=== PATIENT | female | born 1955 | race Hispanic/Latino ===

== ENCOUNTER 2017-11-03 20:45 | Emergency (ER) | payer BC, OTHER ==
[~2017-11-03] VITALS: Ht 172.7 cm; Wt 117.9 kg
[~2017-11-03 20:45] MED LIST: ASPIRIN81 MG PO; LOSARTAN POTASS25 MG PO; NOVOLIN 70100 UNITS/ SC; TOPROL XL25 MG PO; [UNRECOGNIZED DRUG - OTHER]
--- NOTE | 2017-11-03 22:31 | Diagnostic Imaging Report ---
EXAMINATION: CHEST 2 VIEWS INDICATION: Chest pain, coughing COMPARISON: None FINDINGS: TUBES and LINES: None. LUNGS: Lungs are well inflated. Lungs are clear. There is mild prominence of the central pulmonary vasculature, consistent with pulmonary venous congestion. PLEURA: No pleural effusion or pneumothorax. HEART AND MEDIASTINUM: Cardiac size is moderately enlarged. BONES AND SOFT TISSUES: No acute osseous lesion. Soft tissues are unremarkable. UPPER ABDOMEN: No free air under the diaphragm. IMPRESSION: 1. No acute thoracic abnormality. 2. Moderate cardiomegaly without decompensation. Signed by: Dr. Kvng Hills M.D. on 11/03/2017 10:27 PM
== END 2017-11-03 22:10 | disposition home or self-care (01) ==
LOC: ER 20:45
DX: R07.89 Other chest pain (principal); R05 Cough; J20.9 Acute bronchitis, unspecified; I10 Essential (primary) hypertension; E11.40 Type 2 diabetes mellitus with diabetic neuropathy, unspecified
CPT/HCPCS: 71046; 93005; 99283

== ENCOUNTER 2020-02-02 11:48 | Emergency (ER) | payer MEDICARE, OTHER ==
[~2020-02-02] VITALS: Ht 172.7 cm; Wt 117.9 kg
--- OUTSIDE RECORDS SUMMARY | 2020-02-02 11:50 | XMS REPORT | Clinical Summary ---
Author Author [facility] ict Organization [facility] ict Address Unknown Phone Unavailable Care Team Providers Care Sourcing Coordinator Name Role Phone PCP Unavailable Allergies Comments Active Allergy Reactions Severity Noted Date Swelling, wt gain Pioglitazone 07/02/2011 Sulfamethoxazole-Trimetho 02/27/2016 prim Ciprofloxacin Rash 11/20/2015 Lisinopril Cough 04/05/2013 Patient stated she had experienced getting jittery after taking the meds Hydrocodone-Acetaminophen 03/18/2013 Medications End Date Status Medication Sig Dispensed Refills Start Date Active aspirin (ASPIRIN) 81 mg Chew and 90 tablet 4 chewable swallow 1 5 tabletIndications: CAD tablet by (coronary artery mouth daily. disease), S/P coronary artery stent placement Active blood glucose Use as 1 Kit 0 meterIndications: directed.. 5 Diabetes Active insulin asp prt-insulin Inject 25 270 mL 3 aspart (NOVOLOG MIX 70/30 units under 5 FLEXPEN) the skin in FlexPenIndications: DM the morning (diabetes mellitus), type and 20 units 2, uncontrolled at night. w/neurologic complication Active INSULIN SYRINGE 1mL Use to inject 100 Syringe 5 30GX5/16" medication 2 5 syringe-needleIndications times daily. : DM (diabetes mellitus), Use a new type 2, uncontrolled syringe each w/neurologic complication time. Active lancets 28 Use to check 100 Each 1 gaugeIndications: DM blood sugar 5 (diabetes mellitus), type as directed 2, uncontrolled w/neurologic complication Active pen needle, diabetic Use as 200 Each 4 08/05 (NOVOFINE) 30 gauge x directed. 5 1/3" needlesIndications: Diabetes mellitus Active metFORMIN (GLUCOPHAGE) Take 2 360 tablet 0 500 mg tabletIndications: tablets by 5 DM (diabetes mellitus), mouth 2 times type 2, uncontrolled daily (with w/neurologic complication meals). Active nitroGLYCERIN (NITROSTAT) DISSOLVE 1 100 tablet 0 0.4 mg sublingual TABLET UNDEr 5 tabletIndications: CAD THE TONGUE (coronary artery EVERY 5 disease), S/P coronary MINUTES artery stent placement NEEDED,UP TO 3 TIMES. IF CHEST PAIN PERSISTS CALL 911 Active cetirizine (ZYRTEC) 10 mg Take 1 tablet 30 tablet 0 tabletIndications: by mouth 6 Allergic rhinitis, daily. unspecified allergic rhinitis type Active fluticasone (FLONASE) 50 Use 1 [place] 16 g 0 0 mcg/actuation nasal in each 6 sprayIndications: Acute nostril sinusitis, unspecified daily. Active clonazePAM (KLONOPIN) 0.5 Take 1 tablet 20 tablet 0 mg tabletIndications: by mouth 6 Anxiety nightly at bedtime as needed for Anxiety. Active benzonatate (TESSALON Take 1 30 capsule 0 10/29 PERLES) 100 mg capsule by 6 capsuleIndications: Viral mouth 3 times upper respiratory tract daily as infection needed for Cough. Active Lactobac. rhamnosus Take by 1 Box 0 GG-inulin (CULTURELLE mouth. 6 PROBIOTICS) 10 billion cell -200 mg ChewIndications: Antibiotic-associated diarrhea Active albuterol (PROVENTIL, Take 5 mL by 120 mL 0 VENTOLIN) 2 mg/5 mL mouth 4 times 6 syrupIndications: Acute daily as URI needed for Other (wheezing). Active collagenase (SANTYL) 250 Apply to 30 g 5 0 unit/gram affected area 6 ointmentIndications: daily Apply Diabetic ulcer of left to wound foot associated with type daily. 2 diabetes mellitus Active glimepiride (AMARYL) 4 mg Take 1 tablet 90 tablet 3 tabletIndications: Type 2 by mouth 6 diabetes mellitus with every morning other specified (before complication breakfast). Active metoprolol succinate Take 1 tablet 90 tablet 6 (TOPROL XL) 25 mg by mouth 6 extended release daily. tabletIndications: Coronary artery disease involving [place] coronary artery of [place] heart without angina pectoris, S/P coronary artery stent placement Additional information Patient not taking. Reported on 10/03/2019 10:25 AM Active atorvastatin (LIPITOR) 20 Take 1 tablet 30 tablet 6 mg tabletIndications: by mouth at 6 Chest pain, unspecified bedtime type nightly. Active omeprazole (PRILOSEC) 20 Take 1 90 capsule 2 0 mg delayed release capsule by 7 capsuleIndications: mouth every Gastroesophageal reflux morning disease without (before esophagitis breakfast). Active travoprost (TRAVATAN Z) Instill 1 0 0.004 % ophthalmic Drop in right solution eye at bedtime nightly. Active mupirocin (BACTROBAN) 2 % Apply a small 30 g 5 ointmentIndications: amount to 7 Diabetic ulcer of left wound daily midfoot associated with and cover type 2 diabetes mellitus, with gauze. limited to breakdown of skin Active furosemide (LASIX) 40 mg Take 1 tablet 270 tablet 3 tabletIndications: by mouth 3 7 Ischemic cardiomyopathy times daily. Active potassium chloride Take 1 tablet 4 tablet 0 08/10 (KLOR-CON M20) 20 mEq by mouth As 7 extended release directed Take tabletIndications: by mouth with Productive cough metolozone.. Active GABAPENTIN OR Take by 0 mouth. Active amoxicillin-clavulanate Take 1 tablet 0 (AUGMENTIN) 875-125 mg by mouth 2 per tablet times daily. Active spironolactone Take 1 tablet 90 tablet 3 (ALDACTONE) 25 mg by mouth 8 tabletIndications: daily. Dilated cardiomyopathy Active clopidogrel (PLAVIX) 75 Take 8 98 tablet 3 mg tabletIndications: tablets the 8 Ischemia first day (loading dose) then 1 tablet daily. Active prasugrel (EFFIENT) 10 mg Take 1 tablet 90 tablet 3 TabIndications: Coronary by mouth 8 artery disease due to daily. lipid rich plaque Active minocycline (MINOCIN, Take 1 14 capsule 0 / DYNACIN) 100 mg capsule by 8 capsuleIndications: ICD mouth 2 times (implantable daily. cardioverter-defibrillato r) in place Active allopurinol (ZYLOPRIM) Take 300 mg 0 300 mg tablet by mouth daily. Active ferrous sulfate 325 mg Take 325 mg 0 (65 mg iron) tablet by mouth daily (with breakfast). Active carvedilol (COREG) 6.25 Take 1 tablet 180 tablet 4 mg tabletIndications: by mouth 2 9 Ischemia times daily (with meals). Additional information Patient not taking. 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 04/03/2016 Chronic systolic heart failure 02/23/2016 Acute on chronic systolic CHF (congestive heart failu re) 10/29/2015 Hyphema 12/24/2014 Type II or unspecified type diabetes mellitus with op hthalmic 10/24/2014 manifestations, not stated as uncontrol led(250.50) Pseudophakia, both eyes 10/24/2014 Proliferative diabetic retinopathy(362.02) 4 Fall 06/06/2014 Medial malleolar fracture 05/21/2014 Fracture of tibia, distal, right, closed 2014 Fall from standing 05/11/2014 Anxiety with somatization 04/17/2014 Left bundle branch block 03/22/2014 DM (diabetes mellitus), type 2, uncontrolled w/neurol ogic complication 03/22/2014 GERD (gastroesophageal reflux disease) 03/22/2014 Charcot foot due to diabetes mellitus 01/05/2014 Fatty liver 11/13/2013 Abnormal finding on imaging 10/25/2013 Overview: : Intermittent tangential filling defect of the esophagus at the thoracic junction. This likely represe nts an aberrant vessel. Retinopathy due to secondary diabetes- vision abn Diabetic ulcer of left foot 12/25/2012 Insomnia Neuropathy Hepatitis C Obesity Microalbuminuria- as on 09/2013-cough wi th scott-inhibitor ; start cozaar HTN (hypertension) HLD (hyperlipidemia) Acute exacerbation of CHF (congestive h eart failure) Bronchiolitis Gastroesophageal reflux disease without esophagitis ICD (implantable cardioverter-defibrill ator) in place Encounters Care Team Description Date Type Specialty Rosa M Darby MD ICD (implantable cardioverter-defibrilla tor) in place (Primary Dx) 12/01/2019 Nurse Only Cardiology Al Palumbo MD Greak, Jessica Orr 10/03/2019 Hospital Cardiology Encounter Al Palumbo MD LV dysfunction (Primary Dx); ICD (implantable cardioverter-defibrillator) in place; S/P coronary artery stent placement; Essential hypertension 10/03/2019 Office Visit Cardiology Rosa M Darby MD ICD (implantable cardioverter-defibrilla tor) in place (Primary Dx) 09/01/2019 Nurse Only Cardiology Rosa M Darby MD ICD (implantable cardioverter-defibrilla tor), biventricular, in situ (Primary Dx) 06/02/2019 Office Visit Cardiology Al Palumbo MD ICD (implantable cardioverter-defibrilla tor), biventricular, in situ (Primary Dx) 03/03/2019 Office Visit Cardiology after 02/01/2019 Immunizations Name Administration Dates Next Due Lidocaine 1% 5ml Inj 11/14/2015 Ceftriazone 250mg 11/14/2015 Injection Influenza Vac (Fluarix) 06/30/2014 Influenza Vaccine 09/12/2016 (Deferred: [place] valencia Refused), 06/29/2006 Insulin R U-100 1ml Inj 11/29/2012 Nitrostat 0.4mg Tab 02/19/2016 PNEUMOCOCCAL 23-VALPS 04/27/2018 (Deferred: [place] valencai already had this VACCINE 25 MCG/0.5 ML immunization - PER PATIENT VACCINE WAS GIVEN LAST INJECTION YEAR 2016 AT [facility]) Pneumoccoccal 03/07/2012 Tdap Tetanus, diphtheria, 04/04/2013 acellular pertussis Vaccine Family History Medical History Relation Name Comments Cancer Brother BRAIN CANCER (DECEA SED) Diabetes Brother Heart Brother Other Father Diabetes Mother Heart Mother Psychiatry Mother ALZHEIMERS Diabetes Sister 3 SISTERS ALL WITH DIABETES Cancer Sister 2 SISTERS (COLON, U NKNOWN) Relation Name Status Comments Brother Father Mother Sister Sister Social History Date Tobacco Use Types Packs/Day Years Used Quit: 04/17/1990 Former Smoker Cigarettes 0.5 5 Smokeless Tobacco: Former User Tobacco Cessation: Counseling Given: Yes Drinks/Week oz/Week Comments Alcohol Use 0 Standard drinks or equivalent 0.0 No Food Insecurity Answer Date Recorded Within the past 12 months, you worried that your Never sangita e 03/05/2017 food would run out before you got money to buy more. Within the past 12 months, the food you bought Never true 03/05/2017 just didn't last and you didn't have mo debi to get more. Sex Assigned at Date Recorded Not on file Industry Job Start Date Occupation Not on file Not on file Not on file Travel End Travel History Travel Start No recent travel history available. Last Filed Vital Signs Reading Time Taken Comments Vital Sign 136/75 10/03/2019 10:27 AM [employer] Blood Pressure 95 10/03/2019 10:27 AM [employer] Pulse 36.5 C (97.7 F) 10/03/2019 10:27 AM [employer] Temperature 18 10/03/2019 10:27 AM [employer] Respiratory Rate 100% 10/03/2019 10:27 AM [employer] Oxygen Saturation - - Inhaled Oxygen Concentration 116.9 kg (257 lb 11.2 oz) 10/03/2019 10:27 AM [employer] Weight 172.7 cm (5' 8") 10/03/2019 10:27 AM [employer] Height 39.18 10/03/2019 10:27 AM [employer] Body Mass Index Plan of Treatment Health Maintenance Due Date Last Done Comments Colorectal Cancer Scrn 01/01/2007 01/01/2006, 02/2006, 12/30/2005 Annual (FIT/FOBT) Age 50 to 75 DM Foot Exam (Yearly) 09/08/2014 09/08/2013 Breast Cancer Scrn 10/08/2015 10/08/2014, 012 (Yearly) DM Retinal Exam (Yearly) 01/31/2016 01/30/2015, 0 01/25/2015, 12/24/2014, Additional history exists DM Microalbumin Urine 03/15/2016 03/15/2015, 11/27, 12/24/2014, Scrn (Yearly) Additional history exists CORONARY ARTERY DISEASE 04/27/2019 04/27/2018, , 10/30/2015, AGE 18 AND UP Additional history exists DM HGBA1C (Yearly) 04/27/2019 04/27/2018, 018, 02/20/2016, Additional history exists IMM Pneumococcal Age 65 Completed 03/07/2012 and Up Implants Device Identifier Shelf Expiration Date Model / Serial / L ot Implanted Type Area Manufactur er 11/25/2014 / / [id number] Sil[employer]one [employer] & Implanted: Qty: 1 on 10/01/2014 at [facility] Description:ADATO JORGE A OL 5000 Procedures Comments Procedure Name Priority Date/Time Associated Diag nosis ECHG NON-INVASIVE PROC Routine 10/03/2019 LV dysf unction ECHOCARDIOGRAM 2-D W/O 11:43 AM [employer] CONTRAST (PROSOLVE) after 02/01/2019 Results * TRANSTHORACIC ECHO (TTE) (10/03/2019 11:43 AM [employer]) TRANSTHORACIC Transthoracic SMS ECHO (TTE) Echo Report DIANDRA WANG Age: 64 Gender: F : 1955 Exam Date: 10/03/2019 11:43 Exam Location: [facility] Echo Ordering Phys: AL PALUMBO (hchd/Alma DeliakiN) Referring Phys: AL PALUMBO (hchd/Alma DeliakiN) Reading Phys: June Kaur MD Fellow Phys: Fellow Phys: Carpenter Supervisor Wooden Ship: Airam Lea Reason For Exam: Indications: chf, CHF ICD-9 Codes: I50.9 Exam Type: TRANSTHORACIC ECHO (TTE) Procedure CPT: 06312 Addtional CPT: Ht (in): 68 BSA: 2.42 HR: 95 Rhythm: Sinus rhythm Wt (lb): 257 BP: 136 / 75 Technical Quality: Excellent History: MEASUREMENTS Normal ranges based on 95% confidence intervals for adults, some normal patients may fall outside of this range especially when indexing for BSA 2D ECHO LV Diastolic Diameter PLAX 7 cm 4.2-5.8 (M) / 3.8-5.2 (F) IVS Diastolic Thickness 0.93 cm 0.6-1.0 (M) / 0.6-0.9 (F) LVPW Diastolic Thickness 1.3 cm 0.6-1.0 (M) / 0.6-0.9 (F) LV Relative Wall Thickness 0.32 <= 0.42 LVOT Diameter 2.1 cm Aortic Root Diameter 3 cm LV Diastolic Volume MOD BP 274 cm 62-150 cm (M) / 46-106 cm (F) LV Systolic Volume MOD BP 196 cm 21-61 cm (M) / 14-42 cm (F) LV Ejection Fraction MOD BP 28.5 % 52-72 (M) / 54-74 (F) LV Stroke Volume MOD BP 78 cm LV Cardiac Output MOD BP 7410 cm/min LV Cardiac Index MOD BP 3066 cm/minm LA Volume 108 cm LA Volume Index 44.6 cm/m 16 - 34 cm/m LV Mass by linear method 364 g LV Mass by linear method Index 151 g/m DOPPLER LVOT Peak Velocity 109 cm/s LVOT Peak Gradient 4.8 mmHg LVOT Mean Velocity 77.6 cm/s LVOT Mean Gradient 3 mmHg LVOT Velocity Time Integral 21.2 cm LVOT Stroke Volume 75.4 cm FINDINGS Left Ventricle Ultrasound contrast was used for LV opacification. Severe left ventricular dilatation. severely increased LV mass. Left ventricular ejection fraction is 25-29%. Mid to apical segments are akientic, basal segments are low normal . E/a fusion, indeterminent diastology. no apical thrombus seen Right Ventricle The right ventricle is normal in size and systolic function. Device lead in the right ventricular cavity. Right Atrium The right atrium is normal in size. Catheter/pacemaker wire in the right atrial cavity. Left Atrium Moderate-severe left atrial dilatation. The left atrial volume index is 44 cc/ m2 BSA. IAS Mitral Valve Mild posterior leaflet calcification, leaflet tenting. trace to mild MR Aortic Valve Grossly normal aortic valve. cannot exclude trivial AR Tricuspid Valve Grossly normal tricuspid valve. Insufficient TR jet to estimate pulmonary artery systolic pressure. Pulmonic Valve Structurally normal pulmonic valve. Pericardium No pericardial effusion. Aorta Normal aortic root for body surface area. IVC The inferior vena cava is normal in size. CONCLUSIONS Ultrasound contrast was used for LV opacification. Severe left ventricular dilatation. severely increased LV mass. Left ventricular ejection fraction is 25-29%. Mid to apical segments are akientic, basal segments are low normal . E/a fusion, indeterminent diastology. no apical thrombus seen. The right ventricle is normal in size and systolic function. Device lead in the right ventricular cavity. Moderate-severe left atrial dilatation. The left atrial volume index is 44 cc/ m2 BSA. No significant valve abnormalities. compared to prior study in 2016 there is wall motion improvement of basal inferior/setpum. no TR jet to assess PAPs today. new device lead present June Kaur MD (Electronically Signed) Final Date: 03 October 2019 13:24 2D ECHO LV Diastolic Diameter PLAX 7 cm 4.2-5.8 (M) / 3.8-5.2 (F) IVS Diastolic Thickness 0.93 cm 0.6-1.0 (M) / 0.6-0.9 (F) LVPW Diastolic Thickness 1.3 cm 0.6-1.0 (M) / 0.6-0.9 (F) LV Relative Wall Thickness 0.32 <= 0.42 LVOT Diameter 2.1 cm Aortic Root Diameter 3 cm LV Diastolic Volume MOD BP 274 cm 62-150 cm (M) / 46-106 cm (F) LV Systolic Volume MOD BP 196 cm 21-61 cm (M) / 14-42 cm (F) LV Ejection Fraction MOD BP 28.5 % 52-72 (M) / 54-74 (F) LV Stroke Volume MOD BP 78 cm LV Cardiac Output MOD BP 7410 cm/min LV Cardiac Index MOD BP 3066 cm/minm LA Volume 108 cm LA Volume Index 44.6 cm/m 16 - 34 cm/m LV Mass by linear method 364 g LV Mass by linear method Index 151 g/m DOPPLER LVOT Peak Velocity 109 cm/s LVOT Peak Gradient 4.8 mmHg LVOT Mean Velocity 77.6 cm/s LVOT Mean Gradient 3 mmHg LVOT Velocity Time Integral 21.2 cm LVOT Stroke Volume 75.4 cm Specimen Performing Organization Address City/State/Zipcode Ph one Number SMS after 02/01/2019 Insurance Type Payer Benefit Subscriber ID Effective Phone Address Plan / Dates Group AETNA MEDICARE AETNA xxxxxxxxxxxx 2019-P [phone] [address] [id number] [place] [address] Advance Directives Date Inactivated Comments Code Status Date Activated 04/27/2018 5:53 PM Full Code 04/26/2018 12:55 PM 03/20/2017 7:10 PM Full Code 03/20/2017 11:34 AM 12/08/2016 3:32 PM Full Code 12/07/2016 11:30 AM 09/29/2016 1:11 PM Full Code 09/27/2016 11:10 AM 09/17/2016 4:44 PM Full Code 09/16/2016 3:16 PM
--- OUTSIDE RECORDS SUMMARY | 2020-02-02 11:51 | XMS REPORT ---
Author Author [facility] Organization [facility] Address Unknown Phone Unavailable Care Team Providers Care Facility Coordinator Name Role Phone SAUL TAPIA MD PP CATALINA BROWN Unavailable Unavailable KARLY WOMACK Unavailable Unavailable RAFAL, ADEDOYIN Unavailable Unavailable ZAC GUTIÉRREZ Unavailable Unavailable Rolando HARRELL Unavailable Unavailable Payers Payer Name Policy Type Policy Number Effective Date Expiration D ate [address] [id number] Problems This patient has no known problems. Allergies, Adverse Reactions, Alerts Allergy Name Allergy Type Status Severity Reaction(s) Onset Date Inacti ve Date Treating Clinician Comments Lisinopril Allergy to Substance Active Unknown 2017-11-03 00:00 :00 Ciprofloxacin Allergy to Substance Active Unknown 2017-11-03 00 :00:00 Pioglitazone Allergy to Substance Active Unknown 2017-11-03 00: 00:00 lisinopril DA Active MO 2016-08-17 00:00:00 pioglitazone DA Active MO 2016-08-17 00:00:00 hydrocodone bit DA Active U 2010-05-28 00:00:00 Medications Ordered Medication Name Filled Medication Name Start Date Stop Da te Current Medication? Ordering Clinician Indication Dosage Frequency Signature (SIG) Comments Components Aspirin 81 Mg Tab.chew Aspirin 81 Mg Tab.chew Yes 81 Daily Insulin Human Isophan/Regular (Novolin 70-30 100 Unit/ Ml Vial) 100 Units/Ml Ml Insulin Human Isophan/Regular (Novolin 70-30 100 Unit/Ml Vial) 100 Units/Ml Ml Yes 15 Losartan Potassium 25 Mg Tablet Losartan Potassium 25 Mg Tablet Yes 25 Metoprolol Succinate (Toprol Xl) 25 Mg Tab.er.24h Meto prolol Succinate (Toprol Xl) 25 Mg Tab.er.24h Yes 25 Daily Osymia Osymia Yes Procedures and Interventions Procedure Date / Time Performed Performing Clinici an X-ray of chest, two views 2017-11-03 00:00:00 FRANK HARRELL Encounters Start Date/Time End Date/Time Encounter Type Admission Type [facility] Care Department Encounter ID 2018-08-05 00:00:00 2018-08-05 00:00:00 Outpatient [facility] [id number] 2018-05-18 00:00:00 2018-05-18 00:00:00 Outpatient [facility] [id number] 2018-05-13 09:15:44 2018-05-13 09:15:44 Outpatient [facility] [id number] 2018-04-29 17:46:27 2018-04-29 17:46:27 Emergency [facility] [id number] 2018-04-29 08:31:28 2018-04-29 08:31:28 Outpatient [facility] [id number] 2018-04-29 02:14:10 2018-04-29 02:14:10 Outpatient [facility] [id number] 2018-04-29 00:00:00 2018-04-29 00:00:00 Outpatient [facility] [id number] 2018-04-28 22:46:00 2018-04-28 22:46:00 Emergency [facility] [id number] 2018-04-28 08:59:11 2018-04-28 08:59:11 Outpatient [facility] [id number] 2018-04-27 00:00:00 2018-04-27 00:00:00 Outpatient [facility] [id number] 2018-04-26 23:48:44 2018-04-26 23:48:44 Outpatient [facility] [id number] 2018-04-26 14:07:48 2018-04-26 14:07:48 Outpatient [facility] [id number] 2018-04-26 13:45:37 2018-04-26 13:45:37 Outpatient [facility] [id number] 2018-04-26 00:00:00 2018-04-26 00:00:00 Outpatient [facility] [id number] 2018-04-19 15:10:17 2018-04-19 15:10:17 Outpatient [facility] [id number] 2018-04-19 06:55:32 2018-04-19 06:55:32 Outpatient [facility] [id number] 2017-12-13 00:00:00 2017-12-13 00:00:00 Outpatient [facility] [id number] 2017-12-07 06:50:33 2017-12-07 06:50:33 Outpatient [facility] [id number] 2017-11-19 00:00:00 2017-11-19 00:00:00 Outpatient [facility] [id number] 2017-11-03 20:45:00 2017-11-03 22:10:00 Departed Emergency Room ER MANUEL HARRELL [facility] [id number] 2017-10-12 00:00:00 2017-10-12 00:00:00 Outpatient [facility] [id number] 2017-08-31 00:00:00 2017-08-31 00:00:00 Outpatient [facility] [id number] 2017-08-24 00:00:00 2017-08-24 00:00:00 Outpatient [facility] [id number] 2017-08-10 06:46:01 2017-08-10 06:46:01 Outpatient [facility] [id number] 2017-08-06 00:00:00 2017-08-06 00:00:00 Outpatient [facility] [id number] 2017-06-11 00:00:00 2017-06-11 00:00:00 Outpatient [facility] [id number] 2017-05-18 08:57:47 2017-05-18 08:57:47 Outpatient [facility] [id number] 2017-04-16 10:23:15 2017-04-16 10:23:15 Outpatient [facility] [id number] 2017-03-20 07:54:29 2017-03-20 07:54:29 Outpatient [facility] [id number] 2017-03-20 04:47:32 2017-03-20 04:47:32 Emergency [facility] [id number] 2017-03-05 10:17:10 2017-03-05 10:17:10 Outpatient [facility] [id number] 2017-03-05 09:27:54 2017-03-05 09:27:54 Outpatient [facility] [id number] 2016-09-27 11:06:43 2016-09-27 11:06:43 Emergency [facility] [id number] 2016-09-27 07:19:41 2016-09-27 07:19:41 Emergency [facility] [id number] 2016-09-27 07:02:40 2016-09-27 07:02:40 Outpatient [facility] [id number] Results Test Description Test Time Test Comments Text Results Atomic Results Result Comments RAD, CHEST, 2 VIEWS 2019-10-05 18:53:00 FINAL RE PORT CLINICAL HISTORY: Fall and pain 4 images of the chest are submitted. COMPARISON: 08/09/2019 The cardiac silhouette is stable in its prominent size. A left subclavian, multilead ICD is in place. There is no focal consolidation, pleural effusion, pneumothorax or evidence of overt pulmonary edema. There is no acute bony abnormality. IMPRESSION: No acute abnormality. Signed: He Carvalho MDReport Verified Date/Time: 10/05/2019 18:53:53 ONIN I 2019-08-09 10:57:00 TROPONIN I (BEAKER) (test code = 397) 0.01 ng/mL 0.00-0.03 Troponin I (TnI) levels must be interpreted in the context of the presenting sym ptoms and the clinical findings. Elevated TnI levels indicate myocardial damage, but are not specific for ischemic heart disease. Elevated TnI levels are seen in patients with other cardiac conditions (including myocarditis and congestive h eart failure), and slight TnI elevations occur in patients with other conditions , including sepsis, renal failure, acidosis, acute neurological disease, and per sistent tachyarrhythmia.URINALYSIS W/ [id number] 09:10:00* Test Item Value Reference Range Comments COLOR (BEAKER) (test code = 470) Light Yellow CLARITY (BEAKER) (test code = 469) Clear SPECIFIC GRAVITY UA (BEAKER) (test code = 468) 1.011 1 .001-1.035 PH UA (BEAKER) (test code = 467) 5.0 5.0-8.0 PROTEIN UA (BEAKER) (test code = 464) Negative Negative GLUCOSE UA (BEAKER) (test code = 365) 200 mg/dL Negative KETONES UA (BEAKER) (test code = 371) Negative Negative BILIRUBIN UA (BEAKER) (test code = 462) Negative Negative BLOOD UA (BEAKER) (test code = 461) Negative Negative NITRITE UA (BEAKER) (test code = 465) Negative Negative LEUKOCYTE ESTERASE UA (BEAKER) (test code = 466) Negative Negative UROBILINOGEN UA (BEAKER) (test code = 463) 0.2 mg/dL 0.2-1 .0 RBC UA (BEAKER) (test code = 519) 1 /HPF WBC UA (BEAKER) (test code = 520) 1 /HPF MUCUS (BEAKER) (test code = 1574) Rare SQUAMOUS EPITHELIAL (BEAKER) (test code = 516) 2 /HPF SOURCE(BEAKER) (test code = 2795) CT, [id number] 08:42:00Reason for exam:->Abdominal painWhat is the patient's sedation requirement?->No SedationFINAL REPORT INDICATION:Abdominal pain. COMPARISON: None. TECHNIQUE: CT of the Abdomen and Pelvis WITHOUT intravenous contrast. Enteric contrast was not used. The exam was performed according to our department dose-optimization protocol, which includes automated exposure control, adjustments of mA and kV according to patient size. Iterative reconstructions are also sometimes employed. FINDINGS:No bowel obstruction or infection is demonstrated. The appendix is not identified; there is no secondary evidence of appendicitis. No peritoneal free fluid or free air is demonstrated. Patient is status post cholecystectomy. No biliary ductal dilatation is demonstrated. Liver, pancreas, spleen are unremarkable. In the right adrenal gland there is a 1.5 cm low-density nodule representing a benign adenoma. No kidney stone or hydronephrosis is demonstrated. No gross renal mass. Bladder is mildly distended and no bladder wall abnormality demonstrated. Small nonspecific calcifications in both ovaries are noted. No uterine or adnexal mass demonstrated. No pelvic lymphadenopathy or free fluid. No retroperitoneal lymphadenopathy. Lumbar disc space and endplate degenerative changes noted. No suspicious osseous lesion or compression fracture demonstrated. Lower thorax unremarkable. IMPRESSION: No acute abdominal or pelvic abnormality. Right adrenal 1.5 cm benign adenoma, for which no imaging follow-up is recommended. Signed: Luis Newton MDReport Verified Date/Time: 08/09/2019 08:42:16 Re ading Location: [facility] Diagnostic Imaging Reading Room - [place] [id number] Electronica lly signed by: LUIS NEWTON M.D. on 08/09/2019 08:42 AM LIPASE 2019-08-09 08:12:00* Test Item Value Reference Range Comments LIPASE (BEAKER) (test code = 749) 51 U/L 8-78 BASIC METABOLIC [id number] 08:12:00* Test Item Value Reference Range Comments SODIUM (BEAKER) (test code = 381) 135 meq/L 136-145 POTASSIUM (BEAKER) (test code = 379) 3.8 meq/L 3.5-5.1 CHLORIDE (BEAKER) (test code = 382) 100 meq/L 98-107 CO2 (BEAKER) (test code = 355) 24 meq/L 22-29 BLOOD UREA NITROGEN (BEAKER) (test code = 354) 39 mg/dL 7 -21 CREATININE (BEAKER) (test code = 358) 1.38 mg/dL 0.57-1.25 GLUCOSE RANDOM (BEAKER) (test code = 652) 194 mg/dL 70-105 CALCIUM (BEAKER) (test code = 697) 9.5 mg/dL 8.4-10.2 EGFR (BEAKER) (test code = 1092) 38 mL/min/1.73 sq m ESTIMATED GFR IS NOT ACCURATE CREATININE CLEARANCE IN PREDICTING GLOMERULAR FILTRATION RATE. ESTIMATED GFR IS NOT APPLICABLE FOR DIALYSIS PATIENTS. HEPATIC FUNCTION [id number] 08:12:00* Test Item Value Reference Range Comments TOTAL PROTEIN (BEAKER) (test code = 770) 7.5 gm/dL 6.0-8.3 ALBUMIN (BEAKER) (test code = 1145) 4.2 g/dL 3.5-5.0 BILIRUBIN TOTAL (BEAKER) (test code = 377) 0.2 mg/dL 0.2-1 .2 BILIRUBIN DIRECT (BEAKER) (test code = 706) 0.1 mg/dL 0.1- 0.5 ALKALINE PHOSPHATASE (BEAKER) (test code = 346) 102 U/L 40-150 AST (SGOT) (BEAKER) (test code = 353) 24 U/L 5-34 ALT (SGPT) (BEAKER) (test code = 347) 27 U/L 6-55 CBC W/PLT COUNT & AUTO [id number] 07:56:00* Test Item Value Reference Range Comments WHITE BLOOD CELL COUNT (BEAKER) (test code = 775) 9.0 K/ L 3.5-10.5 RED BLOOD CELL COUNT (BEAKER) (test code = 761) 4.25 M/ L 3.93-5.22 HEMOGLOBIN (BEAKER) (test code = 410) 11.9 GM/DL 11.2-15.7 HEMATOCRIT (BEAKER) (test code = 411) 37.5 % 34.1-44.9 MEAN CORPUSCULAR VOLUME (BEAKER) (test code = 753) 88.2 fL 79.4-94.8 MEAN CORPUSCULAR HEMOGLOBIN (BEAKER) (test code = 751) 28.0 pg 25.6-32.2 MEAN CORPUSCULAR HEMOGLOBIN CONC (BEAKER) (test code = 752) 31.7 GM/DL 32.2-35.5 RED CELL DISTRIBUTION WIDTH (BEAKER) (test code = 412) 16.2 % 11.7-14.4 PLATELET COUNT (BEAKER) (test code = 756) 279 K/CU MM 150-45 0 MEAN PLATELET VOLUME (BEAKER) (test code = 754) 10.2 fL 9.4-12.3 NUCLEATED RED BLOOD CELLS (BEAKER) (test code = 413) 0 /100 WBC 0-0 NEUTROPHILS RELATIVE PERCENT (BEAKER) (test code = 429) 73 % LYMPHOCYTES RELATIVE PERCENT (BEAKER) (test code = 430) 12 % MONOCYTES RELATIVE PERCENT (BEAKER) (test code = 431) 7 % EOSINOPHILS RELATIVE PERCENT (BEAKER) (test code = 432) 7 % BASOPHILS RELATIVE PERCENT (BEAKER) (test code = 437) 1 % NEUTROPHILS ABSOLUTE COUNT (BEAKER) (test code = 670) 6.55 K/ L 1.56-6.13 LYMPHOCYTES ABSOLUTE COUNT (BEAKER) (test code = 414) 1.04 K/ L 1.18-3.74 MONOCYTES ABSOLUTE COUNT (BEAKER) (test code = 415) 0.65 K/ L 0.24-0.36 EOSINOPHILS ABSOLUTE COUNT (BEAKER) (test code = 416) 0.64 K/ L 0.04-0.36 BASOPHILS ABSOLUTE COUNT (BEAKER) (test code = 417) 0.05 K/ L 0.01-0.08 IMMATURE GRANULOCYTES-RELATIVE PERCENT (BEAKER) (test code = 280 1) 0 % 0-1 RAD, CHEST, PA OR AP, 1 [id number] 07:55:00Reason for exam:->CHEST PAINReason for exam:->ABDOMINAL PAINShould this be performed at the bedside?->No FINAL REPORT INDICATION: CHEST PAINABDOMINAL PAIN COMPARI SON: April 14, 2018 TECHNIQUE: Single frontal view of the chest. FINDINGS: Lungs and pleura: Clear lungs. No effusion.Heart and mediastinum: Normal heart size. I nterval placement of biventricular pacer.Osseous structures: No acute abnormalit y.Other: None. IMPRESSION: No acute intrathoracic abnormality. Signed: Adrian olmstead JR, Robert MDReport Verified Date/Time: 08/09/2019 07:55:19 Reading Locat ion: [facility] Reading Room -GLUCOSE [id number] 12:18:00* Test Item Value Reference Range Comments POC-GLUCOSE METER (BEAKER) (test code = 1538) 262 mg/dL 70 -110 TESTED AT [place] [address] TROPONIN [id number] 11:26:00* Test Item Value Reference Range Comments TROPONIN I (BEAKER) (test code = 397) 0.02 ng/mL 0.00-0.03 Troponin I (TnI) levels must be interpreted in the context of the presenting sym ptoms and the clinical findings. Elevated TnI levels indicate myocardial damage, but are not specific for ischemic heart disease. Elevated TnI levels are seen in patients with other cardiac conditions (including myocarditis and congestive h eart failure), and slight TnI elevations occur in patients with other conditions , including sepsis, renal failure, acidosis, acute neurological disease, and per sistent tachyarrhythmia.POCT-GLUCOSE [id number] 07:33:00* Test Item Value Reference Range Comments POC-GLUCOSE METER (BEAKER) (test code = 1538) 137 mg/dL 70 -110 TESTED AT [place] [id number] [facility] [address] [id number] 04:56:00* Test Item Value Reference Range Comments MAGNESIUM (BEAKER) (test code = 627) 1.7 mg/dL 1.6-2.6 BASIC METABOLIC [id number] 04:56:00* Test Item Value Reference Range Comments SODIUM (BEAKER) (test code = 381) 135 meq/L 136-145 POTASSIUM (BEAKER) (test code = 379) 3.8 meq/L 3.5-5.1 CHLORIDE (BEAKER) (test code = 382) 98 meq/L 98-107 CO2 (BEAKER) (test code = 355) 27 meq/L 22-29 BLOOD UREA NITROGEN (BEAKER) (test code = 354) 44 mg/dL 7 -21 CREATININE (BEAKER) (test code = 358) 1.10 mg/dL 0.57-1.25 GLUCOSE RANDOM (BEAKER) (test code = 652) 147 mg/dL 70-105 CALCIUM (BEAKER) (test code = 697) 9.9 mg/dL 8.4-10.2 EGFR (BEAKER) (test code = 1092) 50 mL/min/1.73 sq m ESTIMATED GFR IS NOT ACCURATE CREATININE CLEARANCE IN PREDICTING GLOMERULAR FILTRATION RATE. ESTIMATED GFR IS NOT APPLICABLE FOR DIALYSIS PATIENTS. TROPONIN [id number] 04:46:00* Test Item Value Reference Range Comments TROPONIN I (BEAKER) (test code = 397) 0.03 ng/mL 0.00-0.03 Troponin I (TnI) levels must be interpreted in the context of the presenting sym ptoms and the clinical findings. Elevated TnI levels indicate myocardial damage, but are not specific for ischemic heart disease. Elevated TnI levels are seen in patients with other cardiac conditions (including myocarditis and congestive h eart failure), and slight TnI elevations occur in patients with other conditions , including sepsis, renal failure, acidosis, acute neurological disease, and per sistent tachyarrhythmia.[id number] 04:33:00* Test Item Value Reference Range Comments PARTIAL THROMBOPLASTIN TIME (BEAKER) (test code = 760) 42.0 seco nds 22.5-36.0 Prior to initiating heparinCBC W/PLT COUNT & AUTO [id number] 04:22:00* Test Item Value Reference Range Comments WHITE BLOOD CELL COUNT (BEAKER) (test code = 775) 7.0 K/ L 3.5-10.5 RED BLOOD CELL COUNT (BEAKER) (test code = 761) 4.13 M/ L 3.93-5.22 HEMOGLOBIN (BEAKER) (test code = 410) 10.0 GM/DL 11.2-15.7 HEMATOCRIT (BEAKER) (test code = 411) 32.4 % 34.1-44.9 MEAN CORPUSCULAR VOLUME (BEAKER) (test code = 753) 78.5 fL 79.4-94.8 MEAN CORPUSCULAR HEMOGLOBIN (BEAKER) (test code = 751) 24.2 pg 25.6-32.2 MEAN CORPUSCULAR HEMOGLOBIN CONC (BEAKER) (test code = 752) 30.9 GM/DL 32.2-35.5 RED CELL DISTRIBUTION WIDTH (BEAKER) (test code = 412) 22.0 % 11.7-14.4 PLATELET COUNT (BEAKER) (test code = 756) 286 K/CU MM 150-45 0 MEAN PLATELET VOLUME (BEAKER) (test code = 754) 9.7 fL 9.4-12.3 NUCLEATED RED BLOOD CELLS (BEAKER) (test code = 413) 0 /100 WBC 0-0 NEUTROPHILS RELATIVE PERCENT (BEAKER) (test code = 429) 70 % LYMPHOCYTES RELATIVE PERCENT (BEAKER) (test code = 430) 15 % MONOCYTES RELATIVE PERCENT (BEAKER) (test code = 431) 10 % EOSINOPHILS RELATIVE PERCENT (BEAKER) (test code = 432) 4 % BASOPHILS RELATIVE PERCENT (BEAKER) (test code = 437) 1 % NEUTROPHILS ABSOLUTE COUNT (BEAKER) (test code = 670) 4.89 K/ L 1.56-6.13 LYMPHOCYTES ABSOLUTE COUNT (BEAKER) (test code = 414) 1.06 K/ L 1.18-3.74 MONOCYTES ABSOLUTE COUNT (BEAKER) (test code = 415) 0.71 K/ L 0.24-0.36 EOSINOPHILS ABSOLUTE COUNT (BEAKER) (test code = 416) 0.26 K/ L 0.04-0.36 BASOPHILS ABSOLUTE COUNT (BEAKER) (test code = 417) 0.05 K/ L 0.01-0.08 IMMATURE GRANULOCYTES-RELATIVE PERCENT (BEAKER) (test code = 280 1) 0 % 0-1 POCT-GLUCOSE [id number] 01:02:00* Test Item Value Reference Range Comments POC-GLUCOSE METER (BEAKER) (test code = 1538) 195 mg/dL 70 -[address] [facility] [address] [facility] [address] TROPONIN [id number] 18:52:00* Test Item Value Reference Range Comments TROPONIN I (BEAKER) (test code = 397) 0.02 ng/mL 0.00-0.03 Troponin I (TnI) levels must be interpreted in the context of the presenting sym ptoms and the clinical findings. Elevated TnI levels indicate myocardial damage, but are not specific for ischemic heart disease. Elevated TnI levels are seen in patients with other cardiac conditions (including myocarditis and congestive h eart failure), and slight TnI elevations occur in patients with other conditions , including sepsis, renal failure, acidosis, acute neurological disease, and per sistent tachyarrhythmia.B-TYPE NATRIURETIC FACTOR (BNP)2018-04-14 18:50:00* Test Item Value Reference Range Comments B-TYPE NATRIURETIC PEPTIDE (BEAKER) (test code = 700) 518 pg/mL 0-100 RAD, CHEST, 1 VIEW, NON [id number] 18:48:00Reason for exam:->CHEST PAINFINAL REPORT Clinical History: CHEST PAIN Comparison Study: January 15, 2018 Findings: The heart and lungs are within normal limits. The pleural spaces are clear. No significant bony or soft tissue abnormalities are seen. Impression: No active cardiopulmonary disease. Signed: Anirudh Mcfarland eport Verified Date/Time: 04/14/2018 18:48:07 Reading Location: [address] Reading Room Electronically signed by: ANIRUDH MCFARLAND M.D. on 2017 06:48 PM [id number] 18:44:00* Test Item Value Reference Range Comments MAGNESIUM (BEAKER) (test code = 627) 2.1 mg/dL 1.6-2.6 Specimen slightly hemolyzed BASIC METABOLIC [id number] 18:44:00* Test Item Value Reference Range Comments SODIUM (BEAKER) (test code = 381) 136 meq/L 136-145 POTASSIUM (BEAKER) (test code = 379) 4.2 meq/L 3.5-5.1 Specimen slightly hemolyzed CHLORIDE (BEAKER) (test code = 382) 97 meq/L 98-107 CO2 (BEAKER) (test code = 355) 24 meq/L 22-29 BLOOD UREA NITROGEN (BEAKER) (test code = 354) 47 mg/dL 7 -21 CREATININE (BEAKER) (test code = 358) 1.32 mg/dL 0.57-1.25 Specimen slightly hemolyzed GLUCOSE RANDOM (BEAKER) (test code = 652) 105 mg/dL 70-105 CALCIUM (BEAKER) (test code = 697) 10.4 mg/dL 8.4-10.2 EGFR (BEAKER) (test code = 1092) 41 mL/min/1.73 sq m ESTIMATED GFR IS NOT ACCURATE CREATININE CLEARANCE IN PREDICTING GLOMERULAR FILTRATION RATE. ESTIMATED GFR IS NOT APPLICABLE FOR DIALYSIS PATIENTS. PT/[id number] 18:40:00* Test Item Value Reference Range Comments PROTIME (BEAKER) (test code = 759) 15.5 seconds 11.7-14.7 INR (BEAKER) (test code = 370) 1.2 <=5.9 PARTIAL THROMBOPLASTIN TIME (BEAKER) (test code = 760) 28.6 seco nds 22.5-36.0 RECOMMENDED COUMADIN/WARFARIN INR THERAPY RANGESSTANDARD DOSE: 2.0 - 3.0 Inclu katerine: PROPHYLAXIS for venous thrombosis, systemic embolization; TREATMENT for kaleb ous thrombosis and/or pulmonary embolus.HIGH RISK: Target INR is 2.5-3.5 for pat ients with mechanical heart valves.CBC W/PLT COUNT & AUTO [id number] 18:33:00* Test Item Value Reference Range Comments WHITE BLOOD CELL COUNT (BEAKER) (test code = 775) 8.4 K/ L 3.5-10.5 RED BLOOD CELL COUNT (BEAKER) (test code = 761) 4.72 M/ L 3.93-5.22 HEMOGLOBIN (BEAKER) (test code = 410) 11.5 GM/DL 11.2-15.7 HEMATOCRIT (BEAKER) (test code = 411) 37.6 % 34.1-44.9 MEAN CORPUSCULAR VOLUME (BEAKER) (test code = 753) 79.7 fL 79.4-94.8 MEAN CORPUSCULAR HEMOGLOBIN (BEAKER) (test code = 751) 24.4 pg 25.6-32.2 MEAN CORPUSCULAR HEMOGLOBIN CONC (BEAKER) (test code = 752) 30.6 GM/DL 32.2-35.5 RED CELL DISTRIBUTION WIDTH (BEAKER) (test code = 412) 22.0 % 11.7-14.4 PLATELET COUNT (BEAKER) (test code = 756) 312 K/CU MM 150-45 0 MEAN PLATELET VOLUME (BEAKER) (test code = 754) 9.3 fL 9.4-12.3 NUCLEATED RED BLOOD CELLS (BEAKER) (test code = 413) 0 /100 WBC 0-0 NEUTROPHILS RELATIVE PERCENT (BEAKER) (test code = 429) 73 % LYMPHOCYTES RELATIVE PERCENT (BEAKER) (test code = 430) 14 % MONOCYTES RELATIVE PERCENT (BEAKER) (test code = 431) 9 % EOSINOPHILS RELATIVE PERCENT (BEAKER) (test code = 432) 3 % BASOPHILS RELATIVE PERCENT (BEAKER) (test code = 437) 1 % NEUTROPHILS ABSOLUTE COUNT (BEAKER) (test code = 670) 6.06 K/ L 1.56-6.13 LYMPHOCYTES ABSOLUTE COUNT (BEAKER) (test code = 414) 1.16 K/ L 1.18-3.74 MONOCYTES ABSOLUTE COUNT (BEAKER) (test code = 415) 0.76 K/ L 0.24-0.36 EOSINOPHILS ABSOLUTE COUNT (BEAKER) (test code = 416) 0.28 K/ L 0.04-0.36 BASOPHILS ABSOLUTE COUNT (BEAKER) (test code = 417) 0.06 K/ L 0.01-0.08 IMMATURE GRANULOCYTES-RELATIVE PERCENT (BEAKER) (test code = 280 1) 1 % 0-1 POCT-GLUCOSE [id number] 12:49:00* Test Item Value Reference Range Comments POC-GLUCOSE METER (BEAKER) (test code = 1538) 258 mg/dL 70 -[address] [facility] [address] [facility] [address] POCT-GLUCOSE [id number] 08:56:00* Test Item Value Reference Range Comments POC-GLUCOSE METER (BEAKER) (test code = 1538) 193 mg/dL 70 -110 TESTED AT [place] [id number] BASIC METABOLIC [id number] 04:41:00* Test Item Value Reference Range Comments SODIUM (BEAKER) (test code = 381) 136 meq/L 136-145 POTASSIUM (BEAKER) (test code = 379) 4.0 meq/L 3.5-5.1 CHLORIDE (BEAKER) (test code = 382) 96 meq/L 98-107 CO2 (BEAKER) (test code = 355) 28 meq/L 22-29 BLOOD UREA NITROGEN (BEAKER) (test code = 354) 33 mg/dL 7 -21 CREATININE (BEAKER) (test code = 358) 1.04 mg/dL 0.57-1.25 GLUCOSE RANDOM (BEAKER) (test code = 652) 179 mg/dL 70-105 CALCIUM (BEAKER) (test code = 697) 10.5 mg/dL 8.4-10.2 EGFR (BEAKER) (test code = 1092) 54 mL/min/1.73 sq m ESTIMATED GFR IS NOT ACCURATE CREATININE CLEARANCE IN PREDICTING GLOMERULAR FILTRATION RATE. ESTIMATED GFR IS NOT APPLICABLE FOR DIALYSIS PATIENTS. POCT-GLUCOSE [id number] 21:20:00* Test Item Value Reference Range Comments POC-GLUCOSE METER (BEAKER) (test code = 1538) 207 mg/dL 70 -110 TESTED AT [place] [id number] POCT-GLUCOSE [id number] 17:49:00* Test Item Value Reference Range Comments POC-GLUCOSE METER (BEAKER) (test code = 1538) 212 mg/dL 70 -110 TESTED AT [place] [id number] POCT-GLUCOSE [id number] 12:38:00* Test Item Value Reference Range Comments POC-GLUCOSE METER (BEAKER) (test code = 1538) 315 mg/dL 70 -110 TESTED AT [place] [id number] POCT-GLUCOSE [id number] 07:33:00* Test Item Value Reference Range Comments POC-GLUCOSE METER (BEAKER) (test code = 1538) 209 mg/dL 70 -110 TESTED AT [place] [id number] BASIC METABOLIC [id number] 06:50:00* Test Item Value Reference Range Comments SODIUM (BEAKER) (test code = 381) 135 meq/L 136-145 POTASSIUM (BEAKER) (test code = 379) 4.2 meq/L 3.5-5.1 CHLORIDE (BEAKER) (test code = 382) 96 meq/L 98-107 CO2 (BEAKER) (test code = 355) 27 meq/L 22-29 BLOOD UREA NITROGEN (BEAKER) (test code = 354) 32 mg/dL 7 -21 CREATININE (BEAKER) (test code = 358) 1.20 mg/dL 0.57-1.25 GLUCOSE RANDOM (BEAKER) (test code = 652) 227 mg/dL 70-105 CALCIUM (BEAKER) (test code = 697) 9.8 mg/dL 8.4-10.2 EGFR (BEAKER) (test code = 1092) 45 mL/min/1.73 sq m ESTIMATED GFR IS NOT ACCURATE CREATININE CLEARANCE IN PREDICTING GLOMERULAR FILTRATION RATE. ESTIMATED GFR IS NOT APPLICABLE FOR DIALYSIS PATIENTS. B-TYPE NATRIURETIC FACTOR (BNP)2018-04-06 06:15:00* Test Item Value Reference Range Comments B-TYPE NATRIURETIC PEPTIDE (BEAKER) (test code = 700) 648 pg/mL 0-100 MR, SPINE, LUMBAR, [id number] 05:02:00FINAL REPORT EXAM: MRI lumbar spine with and without contrast. CLINICAL HISTORY: Low back pain, >6wks conservative treatment, persistent-progressive symptoms, surgical candidate TECHNIQUE: MRI of the lumbar spine was performed with and without intravenous gadolinium contrast, utilizing the following sequences: Sagittal T1, T2, STIR; axial T1 and T2. COMPARISON: None. FINDINGS: There is a minimal grade 1 anterolisthesis at L4/L5. Vertebral body heights are maintained. There is multilevel degenerative disc disease as evidenced by disc space narrowing, disc desiccation, endplate irregularity and osteophytes, notable for ninu-py-uyftrebd disease at L3/L4 and L4/L5. There is bone marrow edema at the L3/L4 and L4/L5 endplates with associated enhancement. There is T2 hyperintensity within the L3/L4 and L4/L5 disc. There is multilevel facet arthropathy The visualized spinal cord is normal in size, contour and signal. The conus medullaris is located at T12/L1. There is no epidural abscess. At T12-L1, there is no significant spinal canal or neuroforaminal stenosis At L1-L2, there is no significant spinal canal and neural foraminal stenosis. At L2-L3, there is a small diffuse disc bulge with ligamentous hypertrophy which results in mild spinal canal stenosis. There is no significant neural foraminal stenosis At L3- L4, there is a diffuse disc bulge with ligamentous hypertrophy which results in mild to moderate spinal canal stenosis. There is mild left neural foraminal stenosis. At L4-L5, there is a diffuse disc bulge with ligamentous hypertrophy which results in moderate spinal canal stenosis. There is mild bilateral neuroforaminal stenosis. At L5-S1, there is a diffuse disc osteophyte complex, slightly asymmetric to the left without significant spinal canal stenosis. There is mild left neuroforaminal stenosis. The visualized paraspinal and retroperitoneal soft tissues are unremarkable. IMPRESSION:Minimal grade 1 a nterolisthesis at L4/L5. Multilevel degenerative changes resulting in spinal can al and neural foraminal stenosis as described. Bone marrow edema and enhancement of the L3/L4 and L4/L5 endplates which may be due to degenerative disc disease however discitis-osteomyelitis cannot be excluded. Clinical correlation is recom mended. No epidural abscess. Signed: Nakul Erickson MDReport Verified Date/T estrella: 04/06/2018 05:02:45 Reading Location: [address] Transitional Reading Ro om -GLUCOSE [id number] 21:51:00* Test Item Value Reference Range Comments POC-GLUCOSE METER (BEAKER) (test code = 1538) 349 mg/dL 70 -110 Notified MINERVA ISRAEL/TESTED AT [address] [address] POCT-GLUCOSE [id number] 18:15:00* Test Item Value Reference Range Comments POC-GLUCOSE METER (BEAKER) (test code = 1538) 276 mg/dL 70 -110 TESTED AT [address] [address] POCT-GLUCOSE [id number] 12:06:00* Test Item Value Reference Range Comments POC-GLUCOSE METER (BEAKER) (test code = 1538) 295 mg/dL 70 -110 TESTED AT [facility] [address] [facility] [address] POCT-GLUCOSE [id number] 08:05:00* Test Item Value Reference Range Comments POC-GLUCOSE METER (BEAKER) (test code = 1538) 204 mg/dL 70 -[address] [facility] [address] [facility] [address] BASIC METABOLIC [id number] 05:02:00* Test Item Value Reference Range Comments SODIUM (BEAKER) (test code = 381) 134 meq/L 136-145 POTASSIUM (BEAKER) (test code = 379) 4.5 meq/L 3.5-5.1 CHLORIDE (BEAKER) (test code = 382) 97 meq/L 98-107 CO2 (BEAKER) (test code = 355) 28 meq/L 22-29 BLOOD UREA NITROGEN (BEAKER) (test code = 354) 43 mg/dL 7 -21 CREATININE (BEAKER) (test code = 358) 1.26 mg/dL 0.57-1.25 GLUCOSE RANDOM (BEAKER) (test code = 652) 182 mg/dL 70-105 CALCIUM (BEAKER) (test code = 697) 9.5 mg/dL 8.4-10.2 EGFR (BEAKER) (test code = 1092) 43 mL/min/1.73 sq m ESTIMATED GFR IS NOT ACCURATE CREATININE CLEARANCE IN PREDICTING GLOMERULAR FILTRATION RATE. ESTIMATED GFR IS NOT APPLICABLE FOR DIALYSIS PATIENTS. CBC W/PLT COUNT & AUTO [id number] 04:43:00* Test Item Value Reference Range Comments WHITE BLOOD CELL COUNT (BEAKER) (test code = 775) 7.8 K/ L 3.5-10.5 RED BLOOD CELL COUNT (BEAKER) (test code = 761) 4.64 M/ L 3.93-5.22 HEMOGLOBIN (BEAKER) (test code = 410) 11.0 GM/DL 11.2-15.7 HEMATOCRIT (BEAKER) (test code = 411) 36.0 % 34.1-44.9 MEAN CORPUSCULAR VOLUME (BEAKER) (test code = 753) 77.6 fL 79.4-94.8 MEAN CORPUSCULAR HEMOGLOBIN (BEAKER) (test code = 751) 23.7 pg 25.6-32.2 MEAN CORPUSCULAR HEMOGLOBIN CONC (BEAKER) (test code = 752) 30.6 GM/DL 32.2-35.5 RED CELL DISTRIBUTION WIDTH (BEAKER) (test code = 412) 21.9 % 11.7-14.4 PLATELET COUNT (BEAKER) (test code = 756) 285 K/CU MM 150-45 0 MEAN PLATELET VOLUME (BEAKER) (test code = 754) 9.1 fL 9.4-12.3 NUCLEATED RED BLOOD CELLS (BEAKER) (test code = 413) 0 /100 WBC 0-0 NEUTROPHILS RELATIVE PERCENT (BEAKER) (test code = 429) 72 % LYMPHOCYTES RELATIVE PERCENT (BEAKER) (test code = 430) 13 % MONOCYTES RELATIVE PERCENT (BEAKER) (test code = 431) 10 % EOSINOPHILS RELATIVE PERCENT (BEAKER) (test code = 432) 4 % BASOPHILS RELATIVE PERCENT (BEAKER) (test code = 437) 1 % NEUTROPHILS ABSOLUTE COUNT (BEAKER) (test code = 670) 5.61 K/ L 1.56-6.13 LYMPHOCYTES ABSOLUTE COUNT (BEAKER) (test code = 414) 0.99 K/ L 1.18-3.74 MONOCYTES ABSOLUTE COUNT (BEAKER) (test code = 415) 0.78 K/ L 0.24-0.36 EOSINOPHILS ABSOLUTE COUNT (BEAKER) (test code = 416) 0.32 K/ L 0.04-0.36 BASOPHILS ABSOLUTE COUNT (BEAKER) (test code = 417) 0.06 K/ L 0.01-0.08 IMMATURE GRANULOCYTES-RELATIVE PERCENT (BEAKER) (test code = 280 1) 0 % 0-1 POCT-GLUCOSE [id number] 21:27:00* Test Item Value Reference Range Comments POC-GLUCOSE METER (BEAKER) (test code = 1538) 221 mg/dL 70 -110 TESTED AT [address] [address] POCT-GLUCOSE [id number] 18:30:00* Test Item Value Reference Range Comments POC-GLUCOSE METER (BEAKER) (test code = 1538) 229 mg/dL 70 -110 TESTED AT [address] [address] POCT-GLUCOSE [id number] 12:12:00* Test Item Value Reference Range Comments POC-GLUCOSE METER (BEAKER) (test code = 1538) 199 mg/dL 70 -110 TESTED AT [facility] [address] [facility] [address] BASIC METABOLIC [id number] 11:01:00* Test Item Value Reference Range Comments SODIUM (BEAKER) (test code = 381) 133 meq/L 136-145 POTASSIUM (BEAKER) (test code = 379) 4.4 meq/L 3.5-5.1 Specimen slightly hemolyzed CHLORIDE (BEAKER) (test code = 382) 97 meq/L 98-107 CO2 (BEAKER) (test code = 355) 26 meq/L 22-29 BLOOD UREA NITROGEN (BEAKER) (test code = 354) 40 mg/dL 7 -21 CREATININE (BEAKER) (test code = 358) 1.05 mg/dL 0.57-1.25 Specimen slightly hemolyzed GLUCOSE RANDOM (BEAKER) (test code = 652) 167 mg/dL 70-105 CALCIUM (BEAKER) (test code = 697) 9.7 mg/dL 8.4-10.2 EGFR (BEAKER) (test code = 1092) 53 mL/min/1.73 sq m ESTIMATED GFR IS NOT ACCURATE CREATININE CLEARANCE IN PREDICTING GLOMERULAR FILTRATION RATE. ESTIMATED GFR IS NOT APPLICABLE FOR DIALYSIS PATIENTS. CBC W/PLT COUNT & AUTO [id number] 10:59:00* Test Item Value Reference Range Comments WHITE BLOOD CELL COUNT (BEAKER) (test code = 775) 9.3 K/ L 3.5-10.5 RED BLOOD CELL COUNT (BEAKER) (test code = 761) 4.73 M/ L 3.93-5.22 HEMOGLOBIN (BEAKER) (test code = 410) 11.3 GM/DL 11.2-15.7 HEMATOCRIT (BEAKER) (test code = 411) 36.5 % 34.1-44.9 MEAN CORPUSCULAR VOLUME (BEAKER) (test code = 753) 77.2 fL 79.4-94.8 MEAN CORPUSCULAR HEMOGLOBIN (BEAKER) (test code = 751) 23.9 pg 25.6-32.2 MEAN CORPUSCULAR HEMOGLOBIN CONC (BEAKER) (test code = 752) 31.0 GM/DL 32.2-35.5 RED CELL DISTRIBUTION WIDTH (BEAKER) (test code = 412) 22.1 % 11.7-14.4 PLATELET COUNT (BEAKER) (test code = 756) 314 K/CU MM 150-45 0 MEAN PLATELET VOLUME (BEAKER) (test code = 754) 9.3 fL 9.4-12.3 NUCLEATED RED BLOOD CELLS (BEAKER) (test code = 413) 0 /100 WBC 0-0 NEUTROPHILS RELATIVE PERCENT (BEAKER) (test code = 429) 77 % LYMPHOCYTES RELATIVE PERCENT (BEAKER) (test code = 430) 12 % MONOCYTES RELATIVE PERCENT (BEAKER) (test code = 431) 8 % EOSINOPHILS RELATIVE PERCENT (BEAKER) (test code = 432) 3 % BASOPHILS RELATIVE PERCENT (BEAKER) (test code = 437) 0 % NEUTROPHILS ABSOLUTE COUNT (BEAKER) (test code = 670) 7.23 K/ L 1.56-6.13 LYMPHOCYTES ABSOLUTE COUNT (BEAKER) (test code = 414) 1.08 K/ L 1.18-3.74 MONOCYTES ABSOLUTE COUNT (BEAKER) (test code = 415) 0.70 K/ L 0.24-0.36 EOSINOPHILS ABSOLUTE COUNT (BEAKER) (test code = 416) 0.26 K/ L 0.04-0.36 BASOPHILS ABSOLUTE COUNT (BEAKER) (test code = 417) 0.04 K/ L 0.01-0.08 IMMATURE GRANULOCYTES-RELATIVE PERCENT (BEAKER) (test code = 280 1) 0 % 0-1 URINALYSIS W/ [id number] 10:51:00* Test Item Value Reference Range Comments COLOR (BEAKER) (test code = 470) Yellow CLARITY (BEAKER) (test code = 469) Clear SPECIFIC GRAVITY UA (BEAKER) (test code = 468) 1.010 1 .001-1.035 PH UA (BEAKER) (test code = 467) 6.5 5.0-8.0 PROTEIN UA (BEAKER) (test code = 464) Negative Negative GLUCOSE UA (BEAKER) (test code = 365) Negative Negative KETONES UA (BEAKER) (test code = 371) Negative Negative BILIRUBIN UA (BEAKER) (test code = 462) Negative Negative BLOOD UA (BEAKER) (test code = 461) Trace Negative NITRITE UA (BEAKER) (test code = 465) Negative Negative LEUKOCYTE ESTERASE UA (BEAKER) (test code = 466) Trace Negative UROBILINOGEN UA (BEAKER) (test code = 463) 0.2 mg/dL 0.2-1 .0 RBC UA (BEAKER) (test code = 519) 1 /HPF WBC UA (BEAKER) (test code = 520) 4 /HPF BACTERIA (BEAKER) (test code = 517) Occasional MUCUS (BEAKER) (test code = 1574) Rare SQUAMOUS EPITHELIAL (BEAKER) (test code = 516) 13 /HPF SOURCE(BEAKER) (test code = 2795) Urine, Clean Catch [id number] 18:09:00* Test Item Value Reference Range Comments LIPASE (BEAKER) (test code = 749) 29 U/L 8-78 ALT (SGPT)2018-03-27 18:09:00* Test Item Value Reference Range Comments ALT (SGPT) (BEAKER) (test code = 347) 13 U/L 6-55 AST (SGOT)2018-03-27 18:09:00* Test Item Value Reference Range Comments AST (SGOT) (BEAKER) (test code = 353) 20 U/L 5-34 BASIC METABOLIC [id number] 18:09:00* Test Item Value Reference Range Comments SODIUM (BEAKER) (test code = 381) 134 meq/L 136-145 POTASSIUM (BEAKER) (test code = 379) 3.9 meq/L 3.5-5.1 CHLORIDE (BEAKER) (test code = 382) 97 meq/L 98-107 CO2 (BEAKER) (test code = 355) 24 meq/L 22-29 BLOOD UREA NITROGEN (BEAKER) (test code = 354) 42 mg/dL 7 -21 CREATININE (BEAKER) (test code = 358) 1.04 mg/dL 0.57-1.25 GLUCOSE RANDOM (BEAKER) (test code = 652) 119 mg/dL 70-105 CALCIUM (BEAKER) (test code = 697) 9.9 mg/dL 8.4-10.2 EGFR (BEAKER) (test code = 1092) 54 mL/min/1.73 sq m ESTIMATED GFR IS NOT ACCURATE CREATININE CLEARANCE IN PREDICTING GLOMERULAR FILTRATION RATE. ESTIMATED GFR IS NOT APPLICABLE FOR DIALYSIS PATIENTS. BILIRUBIN, ADULT [id number] 18:09:00* Test Item Value Reference Range Comments BILIRUBIN TOTAL (BEAKER) (test code = 377) 0.7 mg/dL 0.2-1 .2 CBC W/PLT COUNT & AUTO [id number] 17:55:00* Test Item Value Reference Range Comments WHITE BLOOD CELL COUNT (BEAKER) (test code = 775) 9.9 K/ L 3.5-10.5 RED BLOOD CELL COUNT (BEAKER) (test code = 761) 4.72 M/ L 3.93-5.22 HEMOGLOBIN (BEAKER) (test code = 410) 11.2 GM/DL 11.2-15.7 HEMATOCRIT (BEAKER) (test code = 411) 36.6 % 34.1-44.9 MEAN CORPUSCULAR VOLUME (BEAKER) (test code = 753) 77.5 fL 79.4-94.8 MEAN CORPUSCULAR HEMOGLOBIN (BEAKER) (test code = 751) 23.7 pg 25.6-32.2 MEAN CORPUSCULAR HEMOGLOBIN CONC (BEAKER) (test code = 752) 30.6 GM/DL 32.2-35.5 RED CELL DISTRIBUTION WIDTH (BEAKER) (test code = 412) 22.1 % 11.7-14.4 PLATELET COUNT (BEAKER) (test code = 756) 253 K/CU MM 150-45 0 MEAN PLATELET VOLUME (BEAKER) (test code = 754) 9.2 fL 9.4-12.3 NUCLEATED RED BLOOD CELLS (BEAKER) (test code = 413) 0 /100 WBC 0-0 NEUTROPHILS RELATIVE PERCENT (BEAKER) (test code = 429) 78 % LYMPHOCYTES RELATIVE PERCENT (BEAKER) (test code = 430) 10 % MONOCYTES RELATIVE PERCENT (BEAKER) (test code = 431) 9 % EOSINOPHILS RELATIVE PERCENT (BEAKER) (test code = 432) 3 % BASOPHILS RELATIVE PERCENT (BEAKER) (test code = 437) 0 % NEUTROPHILS ABSOLUTE COUNT (BEAKER) (test code = 670) 7.64 K/ L 1.56-6.13 LYMPHOCYTES ABSOLUTE COUNT (BEAKER) (test code = 414) 0.94 K/ L 1.18-3.74 MONOCYTES ABSOLUTE COUNT (BEAKER) (test code = 415) 0.92 K/ L 0.24-0.36 EOSINOPHILS ABSOLUTE COUNT (BEAKER) (test code = 416) 0.29 K/ L 0.04-0.36 BASOPHILS ABSOLUTE COUNT (BEAKER) (test code = 417) 0.04 K/ L 0.01-0.08 IMMATURE GRANULOCYTES-RELATIVE PERCENT (BEAKER) (test code = 280 1) 0 % 0-1 URINALYSIS W/ REFLEX URINE [id number] 15:54:00* Test Item Value Reference Range Comments COLOR (BEAKER) (test code = 470) Light Yellow CLARITY (BEAKER) (test code = 469) Clear SPECIFIC GRAVITY UA (BEAKER) (test code = 468) 1.008 1 .001-1.035 PH UA (BEAKER) (test code = 467) 5.0 5.0-8.0 PROTEIN UA (BEAKER) (test code = 464) Negative Negative GLUCOSE UA (BEAKER) (test code = 365) Negative Negative KETONES UA (BEAKER) (test code = 371) Negative Negative BILIRUBIN UA (BEAKER) (test code = 462) Negative Negative BLOOD UA (BEAKER) (test code = 461) Trace Negative NITRITE UA (BEAKER) (test code = 465) Negative Negative LEUKOCYTE ESTERASE UA (BEAKER) (test code = 466) Negative Negative UROBILINOGEN UA (BEAKER) (test code = 463) 0.2 mg/dL 0.2-1 .0 RBC UA (BEAKER) (test code = 519) 1 /HPF WBC UA (BEAKER) (test code = 520) 1 /HPF BACTERIA (BEAKER) (test code = 517) Rare SQUAMOUS EPITHELIAL (BEAKER) (test code = 516) 4 /HPF SOURCE(BEAKER) (test code = 2795) RAD, SPINE, LUMBAR, COMPLETE (MIN 4 VIEWS)2018-02-27 09:49:00Reason for exam:-> back painReason for exam:->radicular painFINAL REPORT Five views of the lumbar spine compared with 01/17/2018. IMPRESSION: There is no fracture or traumatic malalignment. The vertebral body heights are maintained. Multilevel degenerative changes are seen with endplate irregularity, disc space narrowing, osteophytes and facet arthropathy throughout the lumbar spine. There is mild anterolisthesis of L4. The sacrum is obscured by overlying bowel gas. There are vascular calcifications. Signed: Jeremiah Rodriguez MDReport Verified Date/Time: 02/27/2018 09:49:20 Reading Location: [facility] B1 [id number] Consult Reading Room , PELVIS, 1 OR 2 [id number] 15:42:00Reason for exam:->fallFINAL REPORT Exam:1. Thoracic spine, three images.2. Lumbar spine, three images.3. Pelvis, two images. HISTORY: Fall COMPARISON: None IMP RESSION:Thoracic and lumbar spine alignment normal without ev for acute fracture . Mild multilevel degenerative changes, particularly in the lower lumbar spine. Pelvis intact with mild degenerative change of the hips. Atherosclerosis noted. Signed: Kimberley Hoyos Verified Date/Time: 01/17/2018 15:42:02 Readin g Location: [facility] Reading Room , SPINE, LUMBAR, 2 OR 3 [id number] 15:42:00Reason for exam:->fallFINAL REPORT Exam:1. Thoracic spine, three images.2. Lumbar spine, three images.3. Pelvis, two images. HISTORY: Fall COMPARISON: None IMPRESSION:Thoracic and lumbar spine alignment normal without ev for acute fracture. Mild multilevel degenerative changes, particularly in the lower lumbar spine. Pelvis intact with mild degenerative change of the hips. Atherosclerosis noted. Signed: Kimberley Hoyos Verified Date/Time: 01/17/2018 15:42:02 Reading Location: [facility] Reading Room , SPINE, THORACIC, 2 [id number] 15:42:00Reason for exam:->fallFINAL REPORT Exam:1. Thoracic spine, three images.2. Lumbar spine, three images.3. Pelvis, two images. HISTORY: Fall COMPARISON: None IMPRESSION:Thoracic and lumbar spine alignment normal without ev for acute fracture. Mild multilevel degenerative changes, particularly in the lower lumbar spine. Pelvis intact with mild degenerative change of the hips. Atherosclerosis noted. Signed: Clower, Kimberley MDReport Verified Date/Time: 01/17/2018 15:42:02 Reading Location: [facility] Reading Room -GLUCOSE [id number] 13:33:00* Test Item Value Reference Range Comments POC-GLUCOSE METER (BEAKER) (test code = 1538) 263 mg/dL 70 -[address] [facility] [address] [facility] [address] POCT-GLUCOSE [id number] 12:10:00* Test Item Value Reference Range Comments POC-GLUCOSE METER (BEAKER) (test code = 1538) 242 mg/dL 70 -110 TESTED AT [address] [address] POCT-GLUCOSE [id number] 07:38:00* Test Item Value Reference Range Comments POC-GLUCOSE METER (BEAKER) (test code = 1538) 165 mg/dL 70 -110 TESTED AT [address] [address] [id number] 06:09:00* Test Item Value Reference Range Comments FERRITIN (BEAKER) (test code = 361) 49 ng/mL 5-275 VITAMIN B12 AND [id number] 06:09:00* Test Item Value Reference Range Comments VITAMIN B12 (BEAKER) (test code = 774) 374 pg/mL 213-816 FOLATE (BEAKER) (test code = 362) 12.3 ng/mL >=7.0 IRON, TIBC, % SAT. (WITHOUT FERRITIN)2018-01-17 05:44:00* Test Item Value Reference Range Comments IRON (BEAKER) (test code = 547) 29 ug/dL 40-160 TOTAL IRON BINDING CAPACITY (BEAKER) (test code = 769) 393 ug/dL 250-450 IRON % SATURATION (2) (BEAKER) (test code = 2590) 7 % 20-55 [id number] 05:17:00* Test Item Value Reference Range Comments MAGNESIUM (BEAKER) (test code = 627) 1.8 mg/dL 1.6-2.6 BASIC METABOLIC [id number] 05:17:00* Test Item Value Reference Range Comments SODIUM (BEAKER) (test code = 381) 134 meq/L 136-145 POTASSIUM (BEAKER) (test code = 379) 4.0 meq/L 3.5-5.1 CHLORIDE (BEAKER) (test code = 382) 100 meq/L 98-107 CO2 (BEAKER) (test code = 355) 24 meq/L 22-29 BLOOD UREA NITROGEN (BEAKER) (test code = 354) 35 mg/dL 7 -21 CREATININE (BEAKER) (test code = 358) 1.09 mg/dL 0.57-1.25 GLUCOSE RANDOM (BEAKER) (test code = 652) 156 mg/dL 70-105 CALCIUM (BEAKER) (test code = 697) 9.5 mg/dL 8.4-10.2 EGFR (BEAKER) (test code = 1092) 51 mL/min/1.73 sq m ESTIMATED GFR IS NOT ACCURATE CREATININE CLEARANCE IN PREDICTING GLOMERULAR FILTRATION RATE. ESTIMATED GFR IS NOT APPLICABLE FOR DIALYSIS PATIENTS. CBC W/PLT COUNT & AUTO [id number] 05:12:00* Test Item Value Reference Range Comments WHITE BLOOD CELL COUNT (BEAKER) (test code = 775) 5.4 K/ L 3.5-10.5 RED BLOOD CELL COUNT (BEAKER) (test code = 761) 4.37 M/ L 3.93-5.22 HEMOGLOBIN (BEAKER) (test code = 410) 9.4 GM/DL 11.2-15.7 HEMATOCRIT (BEAKER) (test code = 411) 32.1 % 34.1-44.9 MEAN CORPUSCULAR VOLUME (BEAKER) (test code = 753) 73.5 fL 79.4-94.8 MEAN CORPUSCULAR HEMOGLOBIN (BEAKER) (test code = 751) 21.5 pg 25.6-32.2 MEAN CORPUSCULAR HEMOGLOBIN CONC (BEAKER) (test code = 752) 29.3 GM/DL 32.2-35.5 RED CELL DISTRIBUTION WIDTH (BEAKER) (test code = 412) 23.2 % 11.7-14.4 PLATELET COUNT (BEAKER) (test code = 756) 263 K/CU MM 150-45 0 MEAN PLATELET VOLUME (BEAKER) (test code = 754) 9.6 fL 9.4-12.3 NUCLEATED RED BLOOD CELLS (BEAKER) (test code = 413) 0 /100 WBC 0-0 NEUTROPHILS RELATIVE PERCENT (BEAKER) (test code = 429) 66 % LYMPHOCYTES RELATIVE PERCENT (BEAKER) (test code = 430) 20 % MONOCYTES RELATIVE PERCENT (BEAKER) (test code = 431) 9 % EOSINOPHILS RELATIVE PERCENT (BEAKER) (test code = 432) 5 % BASOPHILS RELATIVE PERCENT (BEAKER) (test code = 437) 1 % NEUTROPHILS ABSOLUTE COUNT (BEAKER) (test code = 670) 3.51 K/ L 1.56-6.13 LYMPHOCYTES ABSOLUTE COUNT (BEAKER) (test code = 414) 1.06 K/ L 1.18-3.74 MONOCYTES ABSOLUTE COUNT (BEAKER) (test code = 415) 0.48 K/ L 0.24-0.36 EOSINOPHILS ABSOLUTE COUNT (BEAKER) (test code = 416) 0.24 K/ L 0.04-0.36 BASOPHILS ABSOLUTE COUNT (BEAKER) (test code = 417) 0.05 K/ L 0.01-0.08 IMMATURE GRANULOCYTES-RELATIVE PERCENT (BEAKER) (test code = 280 1) 0 % 0-1 POCT-GLUCOSE [id number] 00:19:00* Test Item Value Reference Range Comments POC-GLUCOSE METER (BEAKER) (test code = 1538) 195 mg/dL 70 -110 TESTED AT [address] [address] POCT-GLUCOSE [id number] 17:42:00* Test Item Value Reference Range Comments POC-GLUCOSE METER (BEAKER) (test code = 1538) 198 mg/dL 70 -110 TESTED AT [address] [address] POCT-GLUCOSE [id number] 11:35:00* Test Item Value Reference Range Comments POC-GLUCOSE METER (BEAKER) (test code = 1538) 161 mg/dL 70 -110 TESTED AT [address] [address] POCT-GLUCOSE [id number] 08:03:00* Test Item Value Reference Range Comments POC-GLUCOSE METER (BEAKER) (test code = 1538) 130 mg/dL 70 -110 TESTED AT [address] [address] [id number] 06:59:00* Test Item Value Reference Range Comments MAGNESIUM (BEAKER) (test code = 627) 2.2 mg/dL 1.6-2.6 CBC W/PLT COUNT & AUTO [id number] 06:26:00* Test Item Value Reference Range Comments WHITE BLOOD CELL COUNT (BEAKER) (test code = 775) 5.9 K/ L 3.5-10.5 RED BLOOD CELL COUNT (BEAKER) (test code = 761) 4.33 M/ L 3.93-5.22 HEMOGLOBIN (BEAKER) (test code = 410) 9.2 GM/DL 11.2-15.7 HEMATOCRIT (BEAKER) (test code = 411) 31.9 % 34.1-44.9 MEAN CORPUSCULAR VOLUME (BEAKER) (test code = 753) 73.7 fL 79.4-94.8 MEAN CORPUSCULAR HEMOGLOBIN (BEAKER) (test code = 751) 21.2 pg 25.6-32.2 MEAN CORPUSCULAR HEMOGLOBIN CONC (BEAKER) (test code = 752) 28.8 GM/DL 32.2-35.5 RED CELL DISTRIBUTION WIDTH (BEAKER) (test code = 412) 23.2 % 11.7-14.4 PLATELET COUNT (BEAKER) (test code = 756) 285 K/CU MM 150-45 0 MEAN PLATELET VOLUME (BEAKER) (test code = 754) 9.2 fL 9.4-12.3 NUCLEATED RED BLOOD CELLS (BEAKER) (test code = 413) 0 /100 WBC 0-0 NEUTROPHILS RELATIVE PERCENT (BEAKER) (test code = 429) 66 % LYMPHOCYTES RELATIVE PERCENT (BEAKER) (test code = 430) 19 % MONOCYTES RELATIVE PERCENT (BEAKER) (test code = 431) 10 % EOSINOPHILS RELATIVE PERCENT (BEAKER) (test code = 432) 4 % BASOPHILS RELATIVE PERCENT (BEAKER) (test code = 437) 1 % NEUTROPHILS ABSOLUTE COUNT (BEAKER) (test code = 670) 3.88 K/ L 1.56-6.13 LYMPHOCYTES ABSOLUTE COUNT (BEAKER) (test code = 414) 1.12 K/ L 1.18-3.74 MONOCYTES ABSOLUTE COUNT (BEAKER) (test code = 415) 0.56 K/ L 0.24-0.36 EOSINOPHILS ABSOLUTE COUNT (BEAKER) (test code = 416) 0.26 K/ L 0.04-0.36 BASOPHILS ABSOLUTE COUNT (BEAKER) (test code = 417) 0.04 K/ L 0.01-0.08 IMMATURE GRANULOCYTES-RELATIVE PERCENT (BEAKER) (test code = 280 1) 0 % 0-1 TROPONIN [id number] 03:04:00* Test Item Value Reference Range Comments TROPONIN I (BEAKER) (test code = 397) 0.01 ng/mL 0.00-0.03 Troponin I (TnI) levels must be interpreted in the context of the presenting sym ptoms and the clinical findings. Elevated TnI levels indicate myocardial damage, but are not specific for ischemic heart disease. Elevated TnI levels are seen in patients with other cardiac conditions (including myocarditis and congestive h eart failure), and slight TnI elevations occur in patients with other conditions , including sepsis, renal failure, acidosis, acute neurological disease, and per sistent tachyarrhythmia.BASIC METABOLIC [id number] 02:54:00* Test Item Value Reference Range Comments SODIUM (BEAKER) (test code = 381) 137 meq/L 136-145 POTASSIUM (BEAKER) (test code = 379) 4.0 meq/L 3.5-5.1 CHLORIDE (BEAKER) (test code = 382) 101 meq/L 98-107 CO2 (BEAKER) (test code = 355) 25 meq/L 22-29 BLOOD UREA NITROGEN (BEAKER) (test code = 354) 37 mg/dL 7 -21 CREATININE (BEAKER) (test code = 358) 1.15 mg/dL 0.57-1.25 GLUCOSE RANDOM (BEAKER) (test code = 652) 141 mg/dL 70-105 CALCIUM (BEAKER) (test code = 697) 9.5 mg/dL 8.4-10.2 EGFR (BEAKER) (test code = 1092) 48 mL/min/1.73 sq m ESTIMATED GFR IS NOT ACCURATE CREATININE CLEARANCE IN PREDICTING GLOMERULAR FILTRATION RATE. ESTIMATED GFR IS NOT APPLICABLE FOR DIALYSIS PATIENTS. POCT-GLUCOSE [id number] 01:03:00* Test Item Value Reference Range Comments POC-GLUCOSE METER (BEAKER) (test code = 1538) 101 mg/dL 70 -[address] [facility] [address] [facility] [id number] POCT-GLUCOSE [id number] 21:24:00* Test Item Value Reference Range Comments POC-GLUCOSE METER (BEAKER) (test code = 1538) 96 mg/dL 70 -[address] [facility] [address] [facility] [id number] TROPONIN [id number] 17:55:00* Test Item Value Reference Range Comments TROPONIN I (BEAKER) (test code = 397) 0.01 ng/mL 0.00-0.03 Troponin I (TnI) levels must be interpreted in the context of the presenting sym ptoms and the clinical findings. Elevated TnI levels indicate myocardial damage, but are not specific for ischemic heart disease. Elevated TnI levels are seen in patients with other cardiac conditions (including myocarditis and congestive h eart failure), and slight TnI elevations occur in patients with other conditions , including sepsis, renal failure, acidosis, acute neurological disease, and per sistent tachyarrhythmia.POCT-GLUCOSE [id number] 17:12:00* Test Item Value Reference Range Comments POC-GLUCOSE METER (BEAKER) (test code = 1538) 203 mg/dL 70 -[address] [facility] [address] [facility] [address] HEMOGLOBIN [id number] 15:03:00* Test Item Value Reference Range Comments HEMOGLOBIN A1C (BEAKER) (test code = 368) 7.9 % 4.3-6. 1 URINALYSIS W/ REFLEX URINE [id number] 13:22:00* Test Item Value Reference Range Comments COLOR (BEAKER) (test code = 470) Light Yellow CLARITY (BEAKER) (test code = 469) Clear SPECIFIC GRAVITY UA (BEAKER) (test code = 468) 1.008 1 .001-1.035 PH UA (BEAKER) (test code = 467) 5.5 5.0-8.0 PROTEIN UA (BEAKER) (test code = 464) Negative Negative GLUCOSE UA (BEAKER) (test code = 365) Negative Negative KETONES UA (BEAKER) (test code = 371) Negative Negative BILIRUBIN UA (BEAKER) (test code = 462) Negative Negative BLOOD UA (BEAKER) (test code = 461) Negative Negative NITRITE UA (BEAKER) (test code = 465) Negative Negative LEUKOCYTE ESTERASE UA (BEAKER) (test code = 466) Negative Negative UROBILINOGEN UA (BEAKER) (test code = 463) 0.2 mg/dL 0.2-1 .0 RBC UA (BEAKER) (test code = 519) 1 /HPF WBC UA (BEAKER) (test code = 520) 2 /HPF MUCUS (BEAKER) (test code = 1574) Rare SQUAMOUS EPITHELIAL (BEAKER) (test code = 516) 2 /HPF HYALINE CASTS (BEAKER) (test code = 514) 4 /LPF SOURCE(BEAKER) (test code = 2795) TROPONIN [id number] 13:09:00* Test Item Value Reference Range Comments TROPONIN I (BEAKER) (test code = 397) 0.02 ng/mL 0.00-0.03 Troponin I (TnI) levels must be interpreted in the context of the presenting sym ptoms and the clinical findings. Elevated TnI levels indicate myocardial damage, but are not specific for ischemic heart disease. Elevated TnI levels are seen in patients with other cardiac conditions (including myocarditis and congestive h eart failure), and slight TnI elevations occur in patients with other conditions , including sepsis, renal failure, acidosis, acute neurological disease, and per sistent tachyarrhythmia.CREATININE, RANDOM [id number] 13:06:00* Test Item Value Reference Range Comments CREATININE URINE (BEAKER) (test code = 375) 34.6 mg/dL Reference Range: No NormalsSODIUM, RANDOM [id number] 13:06:00* Test Item Value Reference Range Comments SODIUM URINE (BEAKER) (test code = 243) 76 meq/L Reference Range: No NormalsLIPID [id number] 13:02:00* Test Item Value Reference Range Comments TRIGLYCERIDES (BEAKER) (test code = 540) 136 mg/dL CHOLESTEROL (BEAKER) (test code = 631) 103 mg/dL HDL CHOLESTEROL (BEAKER) (test code = 976) 22 mg/dL LDL CHOLESTEROL CALCULATED (BEAKER) (test code = 633) 54 mg/dL Triglyceride Reference Range: Low Risk <150 Borderline 150-199 High Risk 200-499 Very High Risk >=500Cholesterol Reference Range: Low Risk <200 Borderline 200-239 High Risk >240HDL Cholesterol Reference Range: Low Risk >=60 High Risk <40LDL Cholesterol Reference Range: Optimal <100 Near Optimal 100-129 Borderline 130-159 High 160-189 Very High >=190 POCT- GLUCOSE [id number] 12:47:00* Test Item Value Reference Range Comments POC-GLUCOSE METER (BEAKER) (test code = 1538) 317 mg/dL 70 -[address] [facility] [address] [facility] [place] [address] RAD, CHEST, PA OR AP, 1 [id number] 04:12:00Reason for exam:->LEG PAINReason for exam:->CHEST PAINShould this be performed at the bedside?->NoFINAL REPORT Chest one view. Clinical history: Leg and chest pain. Comparison: No prior study for comparison. Technique: A single frontal view of the chest was obtained. Findings: The cardiac silhouette is enlarged. The aorta is mildly uncoiled. There is no focal pulmonary consolidation, pleural effusion or pneumothorax. There is no pulmonary edema. Impression:Cardiomegaly. No focal pulmonary consolidation or edema. Signed: Nakul Erickson Verified Date/Time: 01/15/2018 04:12:25 Reading Location: [address] Transitional Reading Room B-TYPE NATRIURETIC FACTOR (BNP)2018-01-15 03:36:00* Test Item Value Reference Range Comments B-TYPE NATRIURETIC PEPTIDE (BEAKER) (test code = 700) 1351 pg/mL 0-100 CREATINE KINASE (CK), TOTAL AND [id number] 03:16:00* Test Item Value Reference Range Comments CREATINE KINASE TOTAL (BEAKER) (test code = 380) 50 U/L 29-200 CREATINE KINASE-MB (BEAKER) (test code = 750) 2.5 ng/mL 0. 0-6.6 CREATINE KINASE-MB INDEX (BEAKER) (test code = 395) 5.0 % CK-MB Reference Range:<6.7 Normal6.7-10.0 Borderline>10.0 Abnormal TROPONIN [id number] 03:16:00* Test Item Value Reference Range Comments TROPONIN I (BEAKER) (test code = 397) 0.02 ng/mL 0.00-0.03 Troponin I (TnI) levels must be interpreted in the context of the presenting sym ptoms and the clinical findings. Elevated TnI levels indicate myocardial damage, but are not specific for ischemic heart disease. Elevated TnI levels are seen in patients with other cardiac conditions (including myocarditis and congestive h eart failure), and slight TnI elevations occur in patients with other conditions , including sepsis, renal failure, acidosis, acute neurological disease, and per sistent tachyarrhythmia.[id number] 03:10:00* Test Item Value Reference Range Comments MAGNESIUM (BEAKER) (test code = 627) 1.8 mg/dL 1.6-2.6 BASIC METABOLIC [id number] 03:10:00* Test Item Value Reference Range Comments SODIUM (BEAKER) (test code = 381) 138 meq/L 136-145 POTASSIUM (BEAKER) (test code = 379) 3.9 meq/L 3.5-5.1 CHLORIDE (BEAKER) (test code = 382) 101 meq/L 98-107 CO2 (BEAKER) (test code = 355) 24 meq/L 22-29 BLOOD UREA NITROGEN (BEAKER) (test code = 354) 40 mg/dL 7 -21 CREATININE (BEAKER) (test code = 358) 1.23 mg/dL 0.57-1.25 GLUCOSE RANDOM (BEAKER) (test code = 652) 128 mg/dL 70-105 CALCIUM (BEAKER) (test code = 697) 9.5 mg/dL 8.4-10.2 EGFR (BEAKER) (test code = 1092) 44 mL/min/1.73 sq m ESTIMATED GFR IS NOT ACCURATE CREATININE CLEARANCE IN PREDICTING GLOMERULAR FILTRATION RATE. ESTIMATED GFR IS NOT APPLICABLE FOR DIALYSIS PATIENTS. HEPATIC FUNCTION [id number] 03:10:00* Test Item Value Reference Range Comments TOTAL PROTEIN (BEAKER) (test code = 770) 7.1 gm/dL 6.0-8.3 ALBUMIN (BEAKER) (test code = 1145) 3.8 g/dL 3.5-5.0 BILIRUBIN TOTAL (BEAKER) (test code = 377) 1.0 mg/dL 0.2-1 .2 BILIRUBIN DIRECT (BEAKER) (test code = 706) 0.6 mg/dL 0.1- 0.5 ALKALINE PHOSPHATASE (BEAKER) (test code = 346) 99 U/L 40-150 AST (SGOT) (BEAKER) (test code = 353) 14 U/L 5-34 ALT (SGPT) (BEAKER) (test code = 347) 10 U/L 6-55 CBC W/PLT COUNT & AUTO [id number] 02:43:00* Test Item Value Reference Range Comments WHITE BLOOD CELL COUNT (BEAKER) (test code = 775) 7.1 K/ L 3.5-10.5 RED BLOOD CELL COUNT (BEAKER) (test code = 761) 4.42 M/ L 3.93-5.22 HEMOGLOBIN (BEAKER) (test code = 410) 9.4 GM/DL 11.2-15.7 HEMATOCRIT (BEAKER) (test code = 411) 32.6 % 34.1-44.9 MEAN CORPUSCULAR VOLUME (BEAKER) (test code = 753) 73.8 fL 79.4-94.8 MEAN CORPUSCULAR HEMOGLOBIN (BEAKER) (test code = 751) 21.3 pg 25.6-32.2 MEAN CORPUSCULAR HEMOGLOBIN CONC (BEAKER) (test code = 752) 28.8 GM/DL 32.2-35.5 RED CELL DISTRIBUTION WIDTH (BEAKER) (test code = 412) 23.3 % 11.7-14.4 PLATELET COUNT (BEAKER) (test code = 756) 311 K/CU MM 150-45 0 MEAN PLATELET VOLUME (BEAKER) (test code = 754) 9.5 fL 9.4-12.3 NUCLEATED RED BLOOD CELLS (BEAKER) (test code = 413) 0 /100 WBC 0-0 NEUTROPHILS RELATIVE PERCENT (BEAKER) (test code = 429) 72 % LYMPHOCYTES RELATIVE PERCENT (BEAKER) (test code = 430) 14 % MONOCYTES RELATIVE PERCENT (BEAKER) (test code = 431) 8 % EOSINOPHILS RELATIVE PERCENT (BEAKER) (test code = 432) 5 % BASOPHILS RELATIVE PERCENT (BEAKER) (test code = 437) 1 % NEUTROPHILS ABSOLUTE COUNT (BEAKER) (test code = 670) 5.13 K/ L 1.56-6.13 LYMPHOCYTES ABSOLUTE COUNT (BEAKER) (test code = 414) 0.97 K/ L 1.18-3.74 MONOCYTES ABSOLUTE COUNT (BEAKER) (test code = 415) 0.60 K/ L 0.24-0.36 EOSINOPHILS ABSOLUTE COUNT (BEAKER) (test code = 416) 0.34 K/ L 0.04-0.36 BASOPHILS ABSOLUTE COUNT (BEAKER) (test code = 417) 0.05 K/ L 0.01-0.08 IMMATURE GRANULOCYTES-RELATIVE PERCENT (BEAKER) (test code = 280 1) 0 % 0-1 CHEST 2 VIEWS [facility] [address] [address] Patient Name: MERLE BATES MR #: [id number] : 1955 Age/Sex: 62/F Req #: [id number] Adm Physician: Ordered by: MANUEL HARRELL MD Report #: [id number] Location: ER Room/Bed: Procedure: [id number] DX/CHEST 2 VIEWS [facility] m Date: 11/03/17 Exam Time: 2117 REPORT STATUS: Signed EXAMINATION: CHEST 2 VIEWS INDICATION: Chest pain, coughing COMPARISON: None FINDINGS: TUBES and LINES: None. LUNGS: Lungs are well inflated. Lungs are clear. There is mild prominence of the central pulmonary vasculature, consistent with pulmonary venous c ongestion. PLEURA: No pleural effusion or pneumothorax. HEART AND MED IASTINUM: Cardiac size is moderately enlarged. BONES AND SOFT TISSUES: No acute osseous lesion. Soft tissues are unremarkable. UPPER ABDOMEN: No free air under the diaphragm. IMPRESSION: 1. No acute thoracic abnormality. 2. Moderate cardiomegaly without decompensation. Signed by: Dr. Erwin Hills M.D. on 11/03/2017 10:27 PM Dictated By: ERWIN UREÑA MD 26 Tra nscribed By: KEMI on 11/03/172226 COPY TO: MANUEL HARRELL MD
--- OUTSIDE RECORDS SUMMARY | 2020-02-02 11:51 | XMS REPORT | Clinical Summary ---
Author Author LINDA Brandtone Organization [facility] Address Unknown Phone Unavailable Care Team Providers Care Wet Room Supervisor Name Role Phone David Daniels PCP Allergies Comments Active Allergy Reactions Severity Noted Date rash Ciprofloxacin Other (See 11/20/2015 Comments) Hydrocodone Bitartrate 05/28/2010 Hydrocodone-Acetaminophen 03/06/2015 Lisinopril Other (See 04/05/2013 Comments) Swelling, wt gain Pioglitazone 07/02/2011 Sulfamethoxazole-Trimetho 02/27/2016 prim Medications End Date Status Medication Sig Dispensed Refills Start Date Active spironolactone Take 25 mg by 0 (ALDACTONE) 25 MG tablet mouth daily. Active furosemide (LASIX) 80 MG Take 80 mg by 0 tablet mouth 2 (two) times daily. Active acetaminophen (TYLENOL) Take 650 mg 0 325 MG tablet by mouth every 4 (four) hours as needed for Pain. Active metFORMIN (GLUMETZA) 500 Take 500 mg 0 MG (MOD) 24 hr tablet by mouth daily with breakfast Take 2 tablets in am and 2 tablets in pm. Active metoprolol (TOPROL-XL) 25 Take 25 mg by 0 MG 24 hr tablet mouth daily. Active aspirin 81 MG EC tablet Take 81 mg by 0 mouth daily. Active glimepiride (AMARYL) 4 MG Take 4 mg by 0 tablet mouth 2 (two) times daily before meals. Active insulin aspart Inject 15 0 protamine-insulin aspart Units (NOVOLOG MIX 70/30) 100 subcutaneousl unit/mL (70-30) Soln y 2 (two) injection times daily with breakfast and dinner . Active clonazePAM (KLONOPIN) 0.5 Take 0.5 mg 0 MG tablet by mouth every night as needed for Anxiety. Active traMADol (ULTRAM) 50 mg Take 50 mg by 0 tablet mouth every 6 (six) hours as needed for Pain. Active travoprost (TRAVATAN Z) Place 1 drop 0 0.004 % Drop ophthalmic into the drops right eye nightly. Active famotidine (PEPCID) 20 MG Take 1 tablet 30 tablet 0 tablet (20 mg total) 9 by mouth 2 (two) times daily. Active gabapentin (NEURONTIN) Take 300 mg 0 300 MG capsule by mouth 3 (three) times daily. 04/07/2019 senna (SENOKOT) 8.6 mg Take 1 tablet 15 tablet 0 0 tablet (8.6 mg 8 total) by mouth every night as needed for Constipation. 08/19/2019 aluminum & magnesium Take 10 mLs 355 mL 0 08/09 hydroxide-simethicone by mouth 9 (MAALOX PLUS) 400-400-40 every 6 (six) mg/5 mL suspension hours as needed for up to 10 days. 08/19/2019 acetaminophen-codeine Take 1 tablet 15 tablet 0 (TYLENOL #3) 300-30 mg by mouth 9 per tablet every 6 (six) hours as needed for up to 10 days. Max Daily Amount: 4 tablets 10/15/2019 traMADol (ULTRAM) 50 mg Take 1 tablet 20 tablet 0 tablet (50 mg total) 0 by mouth every 6 (six) hours as needed for Pain for up to 10 days. Max Daily Amount: 200 mg Active Problems Problem Noted Date Costochondral chest pain 04/15/2018 Unstable angina 04/14/2018 Acute on chronic systolic (congestive) heart failure 04/13/2018 HLD (hyperlipidemia) 04/12/2018 Hepatitis C 04/12/2018 Sciatica 04/04/2018 Back pain 04/04/2018 Intractable low back pain 04/04/2018 Chronic combined systolic and diastolic CHF (congesti ve heart failure) 01/15/2018 Acute midline low back pain without sciatica 018 CAD (coronary artery disease) 03/26/2014 GERD (gastroesophageal reflux disease) 03/22/2014 Retinopathy due to secondary diabetes 09/28/2013 Diabetes mellitus 03/08/2012 Encounters Care Team Description Date Type Specialty Oscar Mahoney MD Contusion of chest wall, unspecified lat erality, initial encounter (Primary Dx) 10/05/2019 Emergency Emergency Medicine 10/05/2019 Travel Marc Valderrama MD Chest pain, unspecified type (Primary Dx ); Abdominal pain, unspecified abdominal location 08/09/2019 Emergency Emergency Medicine 08/09/2019 Orders Only General Internal Me dicine 08/09/2019 Travel after 02/01/2019 Immunizations Name Dates Previously Given Next Due Influenza Pre-Epic 06/29/2006 Pneumococcal 03/07/2012 Polysaccharide (Pneumovax) Tdap 04/04/2013 Family History Medical History Relation Name Comments Heart disease Mother Relation Name Status Comments Mother Social History Date Tobacco Use Types Packs/Day Years Used Former Smoker Smokeless Tobacco: Never Used Alcohol Use Drinks/Week oz/Week Comments No Sex Assigned at Date Recorded Not on file Industry Job Start Date Occupation Not on file Not on file Not on file Travel End Travel History Travel Start No recent travel history available. Last Filed Vital Signs Time Taken Vital Sign Reading 10/05/2019 7:30 AM DELIVERY ROUTE DRIVER Blood Pressure 114/87 10/05/2019 7:30 AM DELIVERY ROUTE DRIVER Pulse 91 10/05/2019 7:30 AM DELIVERY ROUTE DRIVER Temperature 36.6 C (97.9 F) 10/05/2019 7:30 AM DELIVERY ROUTE DRIVER Respiratory Rate 20 10/05/2019 7:30 AM DELIVERY ROUTE DRIVER Oxygen Saturation 100% - Inhaled Oxygen - Concentration 10/05/2019 4:28 AM DELIVERY ROUTE DRIVER Weight 116.6 kg (257 lb) 10/05/2019 4:28 AM DELIVERY ROUTE DRIVER Height 172.7 cm (5' 8") 10/05/2019 4:28 AM DELIVERY ROUTE DRIVER Body Mass Index 39.08 Plan of Treatment Health Maintenance Due Date Last Done Comments BREAST CANCER SCREENING 1955 COLON CANCER SCREENING 1955 COLONOSCOPY HEMOGLOBIN A1C 07/17/2018 01/15/2018 Medicare IPPE (WELCOME TO 04/27/2019 MEDICARE) PNEUMOCOCCAL 65+ 2019 03/07/2012 LOW/MEDIUM RISK (1 of 2 - PCV13) INFLUENZA VACCINE (#1) 2019 06/29/2006 Procedures Comments Procedure Name Priority Date/Time Associated Diag nosis XR CHEST 2 VIEWS STAT 10/05/2019 5:55 AM DELIVERY ROUTE DRIVER REPORT OF PROCEDURE - 08/10/2019 ENDOSCOPY SCAN 11:31 [address] ABDOMEN/PELVIS WITHOUT STAT 08/09/2019 IV CONTRAST 8:19 AM DELIVERY ROUTE DRIVER XR CHEST PA OR AP 1 VIEW STAT 08/09/2019 IN DEPT. 7:42 AM DELIVERY ROUTE DRIVER CBC W/PLT COUNT & AUTO STAT 08/09/2019 DIFFERENTIAL 7:37 AM DELIVERY ROUTE DRIVER TROPONIN I STAT 08/09/2019 7:37 AM DELIVERY ROUTE DRIVER URINALYSIS W/ MICROSCOPIC STAT 08/09/2019 7:37 AM DELIVERY ROUTE DRIVER LIPASE STAT 08/09/2019 7:37 AM DELIVERY ROUTE DRIVER HEPATIC FUNCTION PANEL STAT 08/09/2019 7:37 AM DELIVERY ROUTE DRIVER CBC W/PLT COUNT & AUTO STAT 08/09/2019 DIFFERENTIAL 7:37 AM DELIVERY ROUTE DRIVER BASIC METABOLIC PANEL (7) STAT 08/09/2019 7:37 AM DELIVERY ROUTE DRIVER ED ECG INTERPRETATION Routine 08/09/2019 7:28 AM DELIVERY ROUTE DRIVER ECG 12-LEAD Routine 08/09/2019 6:46 AM DELIVERY ROUTE DRIVER ECG 12-LEAD Routine 08/09/2019 6:46 AM DELIVERY ROUTE DRIVER Procedure Note - Interface, External Ris In - 08/09/2019 7:06 AM DELIVERY ROUTE DRIVER Ventricula r Rate 103 BPM Atrial Rate 103 BPM P-R Interval 142 ms QRS Duration 162 ms Q-T Interval 430 ms QTC Calculatio n(Bazett) 563 ms R Cody 209 degrees T Cody 36 degrees Atrial-se nsed ventricula r-paced rhythm Biventricu lar pacemaker detected Abnormal ECG When compared with ECG of 8 04:16, Electronic ventricula r pacemaker has replaced Sinus rhythm after 02/01/2019 Results * XR chest 2 views (10/05/2019 5:55 AM DELIVERY ROUTE DRIVER) Specimen Narrative Performed At FINAL REPORT [facility] CLINICAL HISTORY: Fall and pain 4 images of the chest are submitted. COMPARISON: 08/09/2019 The cardiac silhouette is stable in its prominent size. A left subclavian, multilead ICD is in place. There is no focal consolidation, pleura l effusion, pneumothorax or evidence of overt pulmonary edema. There is no acute bony abnormality. IMPRESSION: No acute abnormality. Signed: He Garcia MD Report Verified Date/Time: 0 18:53:53 Procedure Note Interface, External Ris In - 10/05/2019 6:56 PM DELIVERY ROUTE DRIVER FINAL REPORT CLINICAL HISTORY: Fall and pain 4 images of the chest are submitted. COMPARISON: 08/09/2019 The cardiac silhouette is stable in its prominent size. A left subclavian, multilead ICD is in place. There is no focal consolidation, pleural effusion, pneumothorax or evidence of overt pulmonary edema. There is no acute bony abnormality. IMPRESSION: No acute abnormality. Signed: He Garcia MD Report Verified Date/Time: 10/05/2019 18:53:53 Performing Organization Address City/State/Zipcode Ph one Number [employer] RIS * EKG-SCANNED (08/10/2019 11:31 AM DELIVERY ROUTE DRIVER) Narrative Performed At This result has an attachment that is n ot available. * CT abdomen/pelvis without iv contrast (08/09/2019 8:19 AM DELIVERY ROUTE DRIVER) Specimen Narrative Performed At FINAL REPORT [employer] INDICATION: Abdominal pain. COMPARISON: None. TECHNIQUE: CT of the Abdomen and Pelvis WITHOUT in travenous contrast. Enteric contrast was not used. The exam was performed according to our department dose-optimization protocol, which includes automated expo sure control, adjustments of mA and kV according to patient size. It erative reconstructions are also sometimes employed. FINDINGS: No bowel obstruction or infection is de monstrated. The appendix is not identified; there is no secondary e vidence of appendicitis. No peritoneal free fluid or free air is de monstrated. Patient is status post cholecystectomy. No biliary ductal dilatation is demonstrated. Liver, pancreas, splee n are unremarkable. In the right adrenal gland there is a 1.5 cm l ow-density nodule representing a benign adenoma. No kidney stone or hy dronephrosis is demonstrated. No gross renal mass. Bladder is mildly distended and no bladder wall abnormality demonstrated. Small nonspecific calcifications in bot h ovaries are noted. No uterine or adnexal mass demonstrated. N o pelvic lymphadenopathy or free fluid. No retroperitoneal lymphade nopathy. Lumbar disc space and endplate degenera tive changes noted. No suspicious osseous lesion or compressio n fracture demonstrated. Lower thorax unremarkable. IMPRESSION: No acute abdominal or pelvic abnormalit y. Right adrenal 1.5 cm benign adenoma, fo r which no imaging follow-up is recommended. Signed: Luis Gómez MD Report Verified Date/Time: 08:42:16 Reading Location: [facility] Imagi ng Reading Room - [place] [id number] Procedure Note Interface, External Ris In - 08/09/2019 8:44 AM DELIVERY ROUTE DRIVER FINAL REPORT INDICATION: Abdominal pain. COMPARISON: None. TECHNIQUE: CT of the Abdomen and Pelvis WITHOUT intravenous contrast. Enteric contrast was not used. The exam was performed according to our department dose-optimization protocol, which includes automated exposure control, adjustments of mA and kV according to patient size. Iterative reconstructions are also sometimes employed. FINDINGS: No bowel obstruction or infection is demonstrated. The [...] no imaging follow-up is recommended. Signed: Luis Gómez MD Report Verified Date/Time: 08/09/2019 08:42:16 Reading Location: [facility] Diagnostic Imaging Reading Room - [place] [id number] Performing Organization Address [facility] one Number [facility] RIS * XR chest PA or AP 1 view in dept (08/09/2019 7:42 AM DELIVERY ROUTE DRIVER) Specimen Narrative Performed At FINAL REPORT [employer] [facility] INDICATION: CHEST PAIN ABDOMINAL PAIN COMPARISON: April 14, 2018 TECHNIQUE: Single frontal view of the c hest. FINDINGS: Lungs and pleura: Clear lungs. No effus ion. Heart and mediastinum: Normal heart siz e. Interval placement of biventricular pacer. Osseous structures: No acute abnormalit y. Other: None. IMPRESSION: No acute intrathoracic abnormality. Signed: JR Jon Robert MD Report Verified Date/Time: 07:55:19 Reading Location: [facility] Radiolo gy Reading Room Procedure Note Interface, External Ris In - 08/09/2019 7:57 AM DELIVERY ROUTE DRIVER FINAL REPORT INDICATION: CHEST PAIN ABDOMINAL PAIN COMPARISON: April 14, 2018 TECHNIQUE: Single frontal view of the chest. FINDINGS: Lungs and pleura: Clear lungs. No effusion. Heart and mediastinum: Normal heart size. Interval placement of biventricular pacer. Osseous structures: No acute abnormality. Other: None. IMPRESSION: No acute intrathoracic abnormality. Signed: JR Jon Robert MD Report Verified Date/Time: 08/09/2019 07:55:19 Reading Location: [facility] Radiology Reading Room Performing Organization Address [facility] one Number GE RIS * CBC with platelet count + automated diff (08/09/2019 7:37 AM DELIVERY ROUTE DRIVER) WBC 9.0 3.5 - 10.5 K/L [facility] RBC 4.25 3.93 - 5.22 M/L [facility] Hemoglobin 11.9 11.2 - 15.7 GM/DL [facility] Hematocrit 37.5 34.1 - 44.9 % [facility] MCV 88.2 79.4 - 94.8 fL [facility] MCH 28.0 25.6 - 32.2 pg [facility] MCHC 31.7 (L) 32.2 - 35.5 GM/DL [facility] RDW 16.2 (H) 11.7 - 14.4 % [facility] Platelets 279 150 - 450 K/CU MM [facility] MPV 10.2 9.4 - 12.3 fL [facility] nRBC 0 0 - 0 /100 WBC [facility] % Neutros 73 % [facility] % Lymphs 12 % [facility] % Monos 7 % [facility] % Eos 7 % [facility] % Baso 1 % [facility] # Neutros 6.55 (H) 1.56 - 6.13 K/L [facility] # Lymphs 1.04 (L) 1.18 - 3.74 K/L [facility] # Monos 0.65 (H) 0.24 - 0.36 K/L [facility] # Eos 0.64 (H) 0.04 - 0.36 K/L [facility] # Baso 0.05 0.01 - 0.08 K/L [facility] Immature 0 0 - 1 % [facility] Granulocytes-[facility] Specimen Blood Performing Organization Address City/State/Zipcode Ph one Number [facility] [address] [facility], [place] [address] MED[facility]ENTER * Troponin I (08/09/2019 7:37 AM DELIVERY ROUTE DRIVER) Troponin I 0.01 0.00 - 0.03 ng/mL [facility] Specimen Blood Narrative Performed At Troponin I (TnI) levels must be interpreted in the co ntext of the presenting [facility] symptoms and the clinical findings. Elevated TnI leve ls indicate myocardial [facility] damage, but are not specific for ischem ic heart disease. Elevated TnI levels are seen in patients with other cardiac con ditions (including myocarditis and congestive heart failure), and slight T nI elevations occur in patients with other conditions, including sepsis, daphne al failure, acidosis, acute neurological disease, and persistent tachyarrhythmia . Performing Organization Address City/State/Zipcode Ph one Number [address] MED[facility]ENTER * Urinalysis w/Microscopic (08/09/2019 7:37 AM DELIVERY ROUTE DRIVER) Color, UA Light Yellow [facility] Clarity, UA Clear [facility] Specific [place], UA 1.011 1.001 - 1.035 [facility] pH, UA 5.0 5.0 - 8.0 [facility] Protein, UA Negative Negative [facility] Glucose, UA 200 mg/dL (A) Negative [facility] Ketones, UA Negative Negative [facility] Bilirubin, UA Negative Negative [facility] Blood, UA Negative Negative [facility] Nitrite, UA Negative Negative [facility] Leukocytes, UA Negative Negative [facility] Urobilinogen, UA 0.2 0.2 - 1.0 mg/dL [facility] RBC, UA 1 /HPF [facility] WBC, UA 1 /HPF [facility] Mucus Rare [facility] Squam Epithel, UA 2 /HPF [facility] Specimen Source [facility] Specimen Urine Performing Organization Address City/[facility] Ph one Number [address] [facility] * Lipase (08/09/2019 7:37 AM DELIVERY ROUTE DRIVER) Lipase 51 8 - 78 U/L [facility] Specimen Blood Performing Organization Address City/[facility] Ph one Number [place] [address] [facility] * Hepatic function panel (08/09/2019 7:37 AM DELIVERY ROUTE DRIVER) Protein, Total 7.5 6.0 - 8.3 gm/dL [facility] Albumin 4.2 3.5 - 5.0 g/dL [facility] Total Bilirubin 0.2 0.2 - 1.2 mg/dL [facility] Bilirubin, Direct 0.1 0.1 - 0.5 mg/dL [facility] Alkaline Phosphatase 102 40 - 150 U/L [facility] AST 24 5 - 34 U/L [facility] ALT 27 6 - 55 U/L [facility] Specimen Blood Performing Organization Address City/[facility] Ph one Number [address] [facility] * Basic Metabolic Panel (08/09/2019 7:37 AM DELIVERY ROUTE DRIVER) Sodium 135 (L) 136 - 145 meq/L [facility] Potassium 3.8 3.5 - 5.1 meq/L [facility] Chloride 100 98 - 107 meq/L [facility] CO2 24 22 - 29 meq/L [facility] BUN 39 (H) 7 - 21 mg/dL [facility] Creatinine 1.38 (H) 0.57 - 1.25 mg/dL [facility] Glucose 194 (H) 70 - 105 mg/dL [facility] Calcium 9.5 8.4 - 10.2 mg/dL [facility] EGFR 38Comment: ESTIMATED GFR IS mL/min/1.73 sq m [facility] NOT ACCURATE CREATININE [facility] CLEARANCE IN PREDICTING GLOMERULAR FILTRATION RATE. ESTIMATED GFR IS NOT APPLICABLE FOR DIALYSIS PATIENTS. Specimen Blood Performing Organization Address City/State/Zipcode Ph one Number [place] [address] [facility] [place] * ECG/EKG Interpretation (08/09/2019 7:28 AM DELIVERY ROUTE DRIVER) Narrative Performed At Marc Valderrama MD 08/10/2019 6:20 AM ECG/EKG Interpretation Date/Time: 08/09/2019 6:46 AM Performed by: Marc Valderrama MD Authorized by: Marc Valderrama MD The ECG was interpreted by ED physician . The ECG is interpreted as paced. Rate is normal rate. Heart rate is 103 BPM. Conduction: conduction normal. ST segme nts normal. ECG reviewed and does not meet STEMI criteria. Patient tolera nce: Patient tolerated the procedure well with no immediate compli cations * ECG 12 lead (08/09/2019 6:46 AM DELIVERY ROUTE DRIVER) Specimen Narrative Performed At Ventricular Rate 103 BPM GE MUSE Atrial Rate 103 BPM P-R Interval 142 ms QRS Duration 162 ms Q-T Interval 430 ms QTC Calculation(Bazett) 563 ms R Cody 209 degrees T Cody 36 degrees Atrial-sensed ventricular-paced rhythm Biventricular pacemaker detected Abnormal ECG When compared with ECG of 15-APR-2018 0 4:16, Electronic ventricular pacemaker has re placed Sinus rhythm Confirmed by MD Елена, [facility] ([id number]) o n 08/10/2019 9:02:32 AM Procedure Note Interface, External Ris In - 08/10/2019 9:[address] DELIVERY ROUTE DRIVER Ventricular Rate 103 BPM Atrial Rate 103 BPM P-R Interval 142 ms QRS Duration 162 ms Q-T Interval 430 ms QTC Calculation(Bazett) 563 ms R Cody 209 degrees T Cody 36 degrees Atrial-sensed ventricular-paced rhythm Biventricular pacemaker detected Abnormal ECG When compared with ECG of 15-APR-2018 04:16, Electronic ventricular pacemaker has replaced Sinus rhythm Confirmed by MD [facility]лена, [facility] ([id number] on 08/10/2019 9:02:32 AM Performing Organization Address City/State/Zipcode Ph one Number GE MUSE after 02/01/2019 Insurance Payer Benefit Subscriber ID Type Phone Address Plan / Group [employer] - MEDICARE MGD CARE [employer]ET[employer] xxxxxxxxxxxx [place] [phone] [place] [address] HMO POS [phone] Advance Directives For more information, please contact: [facility] [address] [place] [address] Date Inactivated Comments Code Status Date Activated 04/15/2018 6:12 PM Full Code 04/15/2018 2:31 AM This code status was determined by: Patient 04/07/2018 3:59 PM Full Code 04/04/2018 1:17 PM This code status was determined by: Patient 01/17/2018 7:23 PM Full Code 01/15/2018 8:04 AM This code status was determined by: Patient
[2020-02-02] MEDS ORDERED: ONDANSETRON HCL INJ 2MG/ML 2ML 2 MG/ML VIAL IV STA (12:34)
[2020-02-02] MEDS ORDERED: SODIUM CHLORIDE 0.9% 1000ML 1,000 ML IV STA (12:34)
[2020-02-02] MEDS ORDERED: CEFTRIAXONE SOD 1 GM/NS 50 ML 50 ML IV STA (12:34)
[2020-02-02] MEDS ORDERED: KETOROLAC TROMETHAMINE 30 MG/ML VIAL IV STA (12:34)
[2020-02-02 13:53] LABS: CLARITY,URINE CLEAR (CLEAR); COLOR,URINE YELLOW (YELLOW); KETONES,URINE NEGATIVE (NEGATIVE); LEUKOCYTE ESTERASE ,URINE NEGATIVE (NEGATIVE); NITRITE,URINE NEGATIVE (NEGATIVE); PROTEIN,URINE DIPSTICK NEGATIVE (NEGATIVE)
[2020-02-02 13:54] LABS: BILIRUBIN,URINE NEGATIVE (NEGATIVE); URINE UROBILINOGEN 0.2 mg/dL (0.2 - 1)
[2020-02-02 13:59] LABS: BACTERIA,URINE RARE /HPF; EPITHELIAL CELLS,URINE RARE /LPF; RBC,URINE 0-5 /HPF (0-5); WBC,URINE (MAN) 0-5 /HPF (0-5)
[2020-02-02 14:23] LABS: BASOPHILS # (AUTO) 0.1 (0.0-0.1); BASOPHILS % 0.6 % (0.0-1.0); EOSINOPHILS # (AUTO) 0.5 (0.0-0.4); EOSINOPHILS % 4.6 % (0.0-6.0); HEMATOCRIT 38.1 % (34.2-44.1); LYMPHOCYTES # (AUTO) 1.3 (1.0-3.2); MEAN CORPUSCULAR HEMOGLOBIN 27.8 pg (28-32); MEAN CORPUSCULAR HGB CONC 31.5 g/dL (31-35); MEAN CORPUSCULAR VOLUME 88.2 fL (81-99); MONOCYTES # (AUTO) 0.7 (0.2-0.8); MONOCYTES % 6.7 % (4.4-11.3); NEUTROPHILS # (AUTO) 7.5 (2.1-6.9); NEUTROPHILS % 74.6 % (38.7-80.0); PLATELET COUNT 265 x10e3/uL (140-360); RED BLOOD COUNT 4.32 x10e6/uL (3.6-5.1); RED CELL DISTRIBUTION WIDTH 17.5 % (11.7-14.4)
[2020-02-02 14:39] LABS: ALBUMIN 4.1 g/dL (3.5-5.0); ALBUMIN/GLOBULIN RATIO 1.1 (0.8-2.0); ANION GAP 16.9 mmol/L (8-16); CALCIUM 10.2 mg/dL (8.4-10.2); CREATININE, SERUM 1.37 mg/dL (0.57-1.11); POTASSIUM 4.9 mmol/L (3.5-5.1)
--- NOTE | 2020-02-02 17:26 | Diagnostic Imaging Report ---
CT Abdomen And Pelvis with Intravenous Contrast INDICATION: ^left side flank / abd pain ^[id number] ^[id number] TECHNIQUE: Thin collimation axial images obtained from the diaphragm to the level of the pubic symphysis following the uneventful administration of 100 cc of low osmolar, nonionic intravenous contrast. Dose reduction techniques used: Automated exposure control, adjustment of the mAs and/or kVp according to patient size, standardized low-dose protocol, and/or iterative reconstruction technique. RADIATION DOSE: Total DLP: 896.74 mGy*cm Estimated effective dose: (DLP x 0.015 x size factor) mSv CTDIvol has been reviewed. It is below the limits set by the Radiation Protocol Committee (RPC). COMPARISON: Report of CT of the abdomen/pelvis from 11/16/2010. Images are not available for comparison. ABDOMEN FINDINGS: Lung Bases: Trace left basilar atelectasis. The heart is enlarged with pacemaker wires in the right atrium and right ventricle. Liver: Steatosis. No evidence for mass. Gallbladder: Absent. No biliary ductal dilatation. Pancreas: Diffuse fatty atrophy without mass or ductal dilatation. Spleen: Normal in size. No evidence of mass.. Adrenal Glands: Nodule in the apex of the right adrenal gland measures 15 mm. The left adrenal gland is normal. Kidneys: Right: Normal enhancement. No soft tissue mass. No calculus or hydronephrosis. Left: Normal enhancement. No soft tissue mass. No calculus or hydronephrosis. Lymph Nodes: No enlarged abdominal or periaortic lymph nodes. Aorta: Normal in diameter. There are calcifications of the splenic artery, iliac arteries and inferior epigastric arteries PELVIS FINDINGS: Bowel: Stomach: The distal stomach is distended with fluid.. Small Bowel: Normal in caliber with normal wall thickness. Large Bowel: Normal in caliber with normal wall thickness. Appendix: Not visualized. Bladder: Underdistended but otherwise normal. The uterus is present and atrophic with calcifications of the parametrial vasculature. There are multiple subcentimeter calcifications in each ovary. Peritoneum/retroperitoneum: No free fluid or fluid collection. Bones: Mild to moderate degenerative changes of the lower lumbar spine. No compression fractures or listhesis. Soft tissues: Unremarkable. IMPRESSION: 1. No evidence for bowel obstruction or inflammation. Nonvisualization of the appendix. 2. No abnormalities of the kidneys, ureters, or bladder to explain left flank pain 3. Steatosis. 4. Left adrenal nodule. Recommend further characterization with CT dedicated to the adrenal glands on an outpatient basis. 5. Bilateral ovarian calcifications. 6. Cardiomegaly. Signed by: Dr. Jerome Starr MD on 02/02/2020 5:23 PM
[2020-02-02] MEDS ORDERED: SODIUM CHLORIDE 0.9% 50ML 50 ML ONE (17:33)
[2020-02-02] MEDS ORDERED: IOPAMIDOL 370 MG/ML 200 ML INFUS..BTL INJ ONE (17:33)
== END 2020-02-02 18:09 | disposition home or self-care (01) ==
LOC: ER 11:48
DX: M54.5 Low back pain (principal); R10.12 Left upper quadrant pain; R10.32 Left lower quadrant pain; R11.0 Nausea; E11.9 Type 2 diabetes mellitus without complications; K76.9 Liver disease, unspecified; Z95.810 Presence of automatic (implantable) cardiac defibrillator
CPT/HCPCS: 36415; 74177; 80053; 81001; 83690; 84484; 85025; 87086; 99284; J0696; J1885; J2405; J7030; Q9967

== ENCOUNTER 2020-04-06 12:30 | Emergency (ER) | payer MEDICARE ==
[~2020-04-06] VITALS: Ht 172.7 cm; Wt 117.9 kg
--- NOTE | 2020-04-06 13:07 | Emergency Department Note ---
History of Present Illnes History of Present Illness Chief Complaint: COVID PUI History of Present Illness This is a 64 year old female c/o cp with sob x 1 week got sick after got sick and dx with uri by Dr Daniels's [employer] and started on Augmentin, denies fever c/o muscle aches/chills/n/v/cough. Historian: Patient Arrival Mode: Car Pig Handler Required: No Onset (how long ago): week(s) (1) Radiation: Reports non-radiation Severity: mild Onset quality: gradual Timing of current episode: constant Progression: waxing and waning Chronicity: new Context: Denies recent illness Relieving factors: none Exacerbating factors: none Associated symptoms: Reports denies other symptoms Treatments prior to arrival: none Past Medical/Family History Physician Review I have reviewed the patient's past medical and family history. Any updates have been documented here. Past Medical History Recent Fever: No Clinical Suspicion of Infectio: Yes New/Unexplained Change in Ment: No Past Medical History: Diabetes, [place] Other Medical History: Blind in left eye Diabetic Neuropathy GLAUCOMA GOUT Past Surgical History: Pacer/AICD Other Surgery: cardiac stents Social History Smoking Cessation: Never Smoker Counseling Performed: No Alcohol Use: None Any Illegal Drug Use: No TB Exposure/Symptoms: No Physically hurt or threatened: No Family History Family history of heart diseas: No Other Last Tetanus: Unknown Any Pre-Existing Lines (PICC,: No Review of Systems Review of Systems Constitutional: Reports as per HPI EENTM: Reports no symptoms Cardiovascular: Reports no symptoms Respiratory: Reports no symptoms Gastrointestinal: Reports as per HPI Genitourinary: Reports no symptoms Musculoskeletal: Reports no symptoms Integumentary: Reports no symptoms Neurological: Reports no symptoms Psychological: Reports no symptoms Endocrine: Reports no symptoms Hematological/Lymphatic: Reports no symptoms Physical Exam Related Data Allergies: Coded Allergies: ciprofloxacin (Verified Allergy, Unknown, 02/02/20) lisinopril (Verified Allergy, Unknown, 02/02/20) pioglitazone (Verified Allergy, Unknown, 02/02/20) Triage Vital Signs Vital Signs Date Time Temp Pulse Resp B/P (MAP) Pulse Ox O2 Delivery O2 Flow Rate FiO2 04/06/20 12:52 99.0 98 18 116/73 99 Room Air Vital signs reviewed: Yes Physical Exam CONSTITUTIONAL Constitutional: Present well-developed, Present well-nourished, Present obese HENT HENT: Present normocephalic, Present atraumatic, Present oropharynx clear/moist, Present nose normal HENT L/R: Present left ext ear normal, Present right ext ear normal EYES Eyes: Reports PERRL, Reports conjunctivae normal NECK Neck: Present ROM normal PULMONARY Pulmonary: Present other (decr br sounds bilat bases) CARDIOVASCULAR Cardiovascular: Present regular rhythm, Present heart sounds normal, Present capillary refill normal, Present normal rate GASTROINTESTINAL Abdominal: Present soft, Present nontender, Present bowel sounds normal GENITOURINARY Genitourinary: Present exam deferred SKIN Skin: Present warm, Present dry MUSCULOSKELETAL Musculoskeletal: Present ROM normal NEUROLOGICAL Neurological: Present alert, Present oriented x 3, Present no gross motor or sensory deficits PSYCHOLOGICAL Psychological: Present mood/affect normal, Present judgement normal Assessment & Plan Medical Decision Making MDM pt looks well, VSS, o2 sat good Reassessment Reassessment dc home, f/u pcp, test for covid, self-quarantine, proning Assessment & Plan Final Impression: (1) Bronchitis due to COVID-19 virus Depart Disposition: HOME, SELF-CARE Last Vital Signs Date Time Temp Pulse Resp B/P (MAP) Pulse Ox O2 Delivery O2 Flow Rate FiO2 04/06/20 12:52 99.0 98 18 116/73 99 Room Air Home Meds Reported Medications [Osymia] No Conflict Check 06/12/15 Aspirin (ASPIRIN) 81 Mg Tab.chew, 81 MG PO DAILY 06/12/15 Losartan Potassium (LOSARTAN POTASSIUM) 25 Mg Tablet, 25 MG PO 06/12/15 Metoprolol Succinate (TOPROL XL) 25 Mg Tab.er.24h, 25 MG PO DAILY, #30 TAB 06/12/15 Insulin Human Isophan/Regular (NOVOLIN 70-30 100 UNIT/ML VIAL) 100 Units/Ml Ml, 15 SC 06/12/15 KIM MARIE MD Apr 06, 2020 13:07
== END 2020-04-06 13:01 | disposition home or self-care (01) ==
LOC: ER 12:35
DX: U07.1 COVID-19 (principal); J40 Bronchitis, not specified as acute or chronic; R05 Cough; R06.02 Shortness of breath; E11.9 Type 2 diabetes mellitus without complications; Z95.0 Presence of cardiac pacemaker; I25.2 Old myocardial infarction
CPT/HCPCS: 93005; 99282

== ENCOUNTER 2023-02-15 10:05 | Emergency (ER) | payer MEDICARE, OTHER ==
[~2023-02-15] VITALS: Ht 172.7 cm; Wt 117.9 kg
[2023-02-15 13:13] LABS: BASOPHILS % 0.5 % (0.0-1.0); EOSINOPHILS # (AUTO) 0.4 (0.0-0.4); EOSINOPHILS % 4.7 % (0.0-6.0); HEMATOCRIT 39.1 % (34.2-44.1); HEMOGLOBIN 12.7 g/dL (12.0-16.0); LYMPHOCYTES # (AUTO) 1.1 (1.0-3.2); LYMPHOCYTES % 13.5 % (18.0-39.1); MEAN CORPUSCULAR HEMOGLOBIN 29.3 pg (28-32); MEAN CORPUSCULAR HGB CONC 32.5 g/dL (31-35); MEAN CORPUSCULAR VOLUME 90.1 fL (81-99); MONOCYTES # (AUTO) 0.6 (0.2-0.8); MONOCYTES % 6.7 % (4.4-11.3); NEUTROPHILS # (AUTO) 6.1 (2.1-6.9); NEUTROPHILS % 74.4 % (38.7-80.0); PLATELET COUNT 236 x10e3/uL (140-360); RED BLOOD COUNT 4.34 x10e6/uL (3.6-5.1); RED CELL DISTRIBUTION WIDTH 14.2 % (11.7-14.4)
[2023-02-15 13:47] LABS: ALBUMIN 3.9 g/dL (3.5-5.0); ALBUMIN/GLOBULIN RATIO 1.2 (0.8-2.0); ANION GAP 15.3 mmol/L (8-16); CALCIUM 9.2 mg/dL (8.4-10.2); CREATININE, SERUM 1.46 mg/dL (0.57-1.11); POTASSIUM 4.3 mmol/L (3.5-5.1)
[2023-02-15 13:55] LABS: CLARITY,URINE HAZY (CLEAR); COLOR,URINE YELLOW (YELLOW); KETONES,URINE NEGATIVE (NEGATIVE); LEUKOCYTE ESTERASE ,URINE TRACE (NEGATIVE); NITRITE,URINE NEGATIVE (NEGATIVE); PROTEIN,URINE DIPSTICK NEGATIVE (NEGATIVE); URINE UROBILINOGEN 0.2 mg/dL (0.2 - 1)
[2023-02-15 14:04] LABS: BACTERIA,URINE MODERATE /HPF; EPITHELIAL CELLS,URINE MODERATE /LPF
[2023-02-15] MEDS ORDERED: SODIUM CHLORIDE 0.9% 1000ML 1,000 ML IV ONE (14:15)
[2023-02-15] MEDS ORDERED: INSULIN REGULAR, HUMAN 100 UNIT/1 ML SQ ONE (14:15)
[2023-02-15 14:21] VITALS: O2SAT 100
[2023-02-15] MEDS ORDERED: ACETAMINOPHEN 325 MG TAB PO ONE (14:30)
== END 2023-02-15 15:46 | disposition home or self-care (01) ==
LOC: ER 10:18
DX: R53.1 Weakness (principal); S93.492A Sprain of other ligament of left ankle, initial encounter; M25.562 Pain in left knee; S30.0XXA Contusion of lower back and pelvis, initial encounter; W01.0XXA Fall on same level from slipping, tripping and stumbling without subsequent striking against object, initial encounter; Y93.01 Activity, walking, marching and hiking; Y92.89 Other specified places as the place of occurrence of the external cause; I10 Essential (primary) hypertension; E11.65 Type 2 diabetes mellitus with hyperglycemia; E11.40 Type 2 diabetes mellitus with diabetic neuropathy, unspecified; H54.62 Unqualified visual loss, left eye, normal vision right eye; H40.9 Unspecified glaucoma; M10.9 Gout, unspecified; I25.2 Old myocardial infarction
CPT/HCPCS: 36415; 71045; 72110; 72220; 73562; 73610; 80053; 81001; 82948; 84484; 85025; 93005; 99284; J7030